=== PATIENT | male | born 1960 | race Caucasian/White ===

== ENCOUNTER → 2018-07-30 | Outpatient (CLI) | payer MEDICARE ==
[~2018-07-30] MED LIST: AMLODIPINE BESY10 MG PO; ASPIR 8181 MG PO; ATENOLOL50 MG PO; FAMOTIDINE20 MG PO; HYDROCODON-ACE1 EA11 PO; HYDROXYZINE HCL50 MG PO; LISINOPRIL20 MG PO; PRAVACHOL40 MG PO; SERTRALINE HCL50 MG PO
--- NOTE | 2018-07-30 09:54 | Diagnostic Imaging Report ---
PROCEDURE:X-RAY ABDOMEN - KUB COMPARISON:None. INDICATIONS:URETERAL CALCULUS FINDINGS: Left internal ureteral stent, positioned with the proximal locking loop over the expected region of the renal pelvis and the distal locking loop over the expected region of the urinary bladder to the left of midline. No suspicious calcifications project over the renal shadows or ureteral courses. Bowel gas pattern is nonobstructive. Regional skeletal structures are intact. CONCLUSION: Appropriately positioned left internal ureteral stent without plain film evidence of urolithiasis. Dictated by: Ry Sanders M.D. on 07/30/2018 at 10:02 Electronically approved by: Ry Sanders M.D. on 07/30/2018 at 10:02
== END ==
LOC: RAD 09:14
PROVIDERS: ATTEND Urology
DX: N20.1 Calculus of ureter (principal)
CPT/HCPCS: 74018

== ENCOUNTER 2020-06-16 16:39 | Emergency (ER) | payer MEDICARE ==
[~2020-06-16] VITALS: Ht 177.8 cm; Wt 117.9 kg
--- NOTE | 2020-06-16 17:08 | NUR ---
seen in triage by
[2020-06-16] MEDS ORDERED: ONDANSETRON HCL INJ 2MG/ML 2ML 2 MG/ML VIAL IV STA (17:11)
[2020-06-16] MEDS ORDERED: FENTANYL CITRATE/PF 100MCG/2 ML INJ IV ONE (17:15)
--- NOTE | 2020-06-16 17:19 | Emergency Department Note ---
History of Present Illnes History of Present Illness Chief Complaint: Abdominal Complaints History of Present Illness This is a 60 year old male Chief Complaint Comment abd pain x 2 days. went to [facility] last night. pt [id number]. ambulatory. states filled rx. vomit x one today. abd upper pain epigastric and across left/right. pt states dr juarez thinks its his gallbladder. Historian: Patient Arrival Mode: Car Television Journalist Required: No Onset (how long ago): day(s) (3) Location: Epigastric Quality: Sharp Radiation: Reports non-radiation Severity: moderate Onset quality: gradual Duration (how long): day(s) (3) Timing of current episode: constant Progression: worsening Chronicity: new Context: Denies recent illness Relieving factors: none Exacerbating factors: none Associated symptoms: Reports denies other symptoms Treatments prior to arrival: none (ANI LOUIS MD) Past Medical/Family History Physician Review I have reviewed the patient's past medical and family history. Any updates have been documented here. (ANI LOUIS MD) Past Medical History Recent Fever: No Clinical Suspicion of Infectio: No New/Unexplained Change in Ment: No Past Medical History: Hypertension, Diabetes, CHF, [place], A-Fib, CAD, Kidney Stones, UTI's, Migraines, Anxiety, GERD, Hyperlipedemia, Chronic Back Pain Other Medical History: Cardiac Stents x 2; [place] x2; kidney stones; gastroenteritis. Past Surgical History: PCI, Pacer/AICD, Hernia Repair Other Surgery: 22 polyups out (ANI LOUIS MD) Social History Physically hurt or threatened: No (ANI LOUIS MD) Review of Systems Review of Systems Constitutional: Reports no symptoms EENTM: Reports no symptoms Cardiovascular: Reports no symptoms Respiratory: Reports no symptoms Gastrointestinal: Reports no symptoms, Reports as per HPI, Reports abdominal pain Genitourinary: Reports no symptoms Musculoskeletal: Reports no symptoms Integumentary: Reports no symptoms Neurological: Reports no symptoms Psychological: Reports no symptoms Endocrine: Reports no symptoms Hematological/Lymphatic: Reports no symptoms (ANI LOUIS MD) Physical Exam Related Data Allergies: Coded Allergies: No Known Allergies (Unverified , 06/05/13) Triage Vital Signs Vital Signs Date Time Temp Pulse Resp B/P (MAP) Pulse Ox O2 Delivery O2 Flow Rate FiO2 06/16/20 17:01 98.8 79 16 138/78 96 Room Air Vital signs reviewed: Yes (ANI LOUIS MD) Physical Exam CONSTITUTIONAL Constitutional: Present well-developed, Present well-nourished HENT HENT: Present normocephalic, Present atraumatic, Present oropharynx clear/moist, Present nose normal HENT L/R: Present left ext ear normal, Present right ext ear normal EYES Eyes: Reports PERRL, Reports conjunctivae normal NECK Neck: Present ROM normal PULMONARY Pulmonary: Present effort normal, Present breath sounds normal CARDIOVASCULAR Cardiovascular: Present regular rhythm, Present heart sounds normal, Present capillary refill normal, Present normal rate GASTROINTESTINAL Abdominal: Present soft, Present bowel sounds normal, Present tender (Epigastric) GENITOURINARY Genitourinary: Present exam deferred SKIN Skin: Present warm, Present dry MUSCULOSKELETAL Musculoskeletal: Present ROM normal NEUROLOGICAL Neurological: Present alert, Present oriented x 3, Present no gross motor or sensory deficits PSYCHOLOGICAL Psychological: Present mood/affect normal, Present judgement normal (ANI LOUIS MD) Results Imaging Imaging results reviewed: Yes Impressions EXAM: Right Upper Quadrant Ultrasound INDICATION: ^abd pain ruq ^[id number] ^[id number] COMPARISON: None. TECHNIQUE: Transverse and longitudinal images of the right upper abdomen were obtained. FINDINGS: Liver: Size: 17.3 cm in the right midclavicular line, enlarged Appearance: Increased echogenicity, smooth contour Mass: No focal masses Gallbladder: Stones/Sludge: None Wall: 0.3 cm Appearance: No wall thickening, pericholecystic fluid or hydrops. Sonographic Richardson's Sign: Negative Bile Ducts: Intrahepatic Ducts: No dilatation Extrahepatic Ducts: Common bile duct measures 0.4 cm, no dilatation Pancreas: Visualized portions of the pancreatic neck and proximal body are normal. Kidneys: Length: Right 13.0 cm Echogenicity: Normal Collecting System: No hydronephrosis Stone: None Cyst/Mass: None Vessels: Aorta: Obscured by overlying bowel gas. Inferior Vena Cava: Obscured by overlying bowel gas. Main Portal Vein: 1.5 cm, upper limit of normal in size with hepatopetal flow. Free Fluid: No ascites or pleural effusion IMPRESSION: 1. No cholelithiasis or cholecystitis. 2. Hepatomegaly with diffuse fatty infiltration. No focal lesions. Signed by: Dr. Karina King M.D. on 06/16/2020 6:18 PM Dictated By: KARINA KING MD 17 Transcribed By: ENRRIQUE on 06/16/201817 COPY TO: ANI LOUIS MD~ (VOLODYMYR THOMAS MD) Procedures 12 Lead ECG Interpretation ECG Interpretation : Television Journalist: Interpreted by ED physician Date: Jun 16, 2020 Rhythm: sinus rhythm Rate: normal BPM: 80 QRS axis: left ST segments normal: Yes T waves normal: Yes Clinical Impression: non-specific ECG (ANI LOUIS MD) Assessment & Plan Medical Decision Making MDM Handed Patient off to Dr. Thomas at 1800 (ANI LOUIS MD) Assessment & Plan Final Impression: (1) Abdominal pain (ANI LOUIS MD) Final Impression: (1) Abdominal pain (2) Gastritis (VOLODYMYR THOMAS MD) Depart Disposition: HOME, SELF-CARE Last Vital Signs Date Time Temp Pulse Resp B/P (MAP) Pulse Ox O2 Delivery O2 Flow Rate FiO2 06/16/20 17:01 98.8 79 16 138/78 96 Room Air (ANI LOUIS MD) Home Meds Reported Medications Amlodipine Besylate (AMLODIPINE BESYLATE) 10 Mg Tablet, 10 MG PO DAILY 06/08/13 Famotidine (FAMOTIDINE) 20 Mg Tab, 20 MG PO BID 06/08/13 Hydrocodone Bit/Acetaminophen (HYDROCODON-ACETAMINOPHEN 5-325) 1 Each Tablet, 1 TAB PO Q6 PRN 06/08/13 Pravastatin Sodium (PRAVACHOL) 40 Mg Tablet, 40 MG PO DAILY 06/08/13 Lisinopril (PRINAVIL / ZESTRIL) 20 Mg Tablet, 20 MG PO DAILY 06/08/13 Atenolol (ATENOLOL) 50 Mg Tablet, 50 MG PO DAILY 06/08/13 Hydroxyzine Hcl (HYDROXYZINE HCL) 50 Mg Tablet, 50 MG PO HS PRN FOR INSOMNIA 06/06/13 Aspirin (ASPIR 81) 81 Mg Tablet.dr, 81 MG PO DAILY 06/05/13 Sertraline Hcl (SERTRALINE HCL) 50 Mg Tablet, 50 MG PO DAILY 06/05/13 Hydroxyzine Hcl (HYDROXYZINE HCL) 50 Mg Tablet, 25 MG PO BID PRN FOR ANXIETY 06/05/13 ANI LOUIS MD Jun 16, 2020 17:19 VOLODYMYR THOMAS MD Jun 16, 2020 18:53
[2020-06-16 17:31] LABS: BASOPHILS % 0.4 % (0.0-1.0); EOSINOPHILS # (AUTO) 0.1 (0.0-0.4); EOSINOPHILS % 1.1 % (0.0-6.0); HEMATOCRIT 46.2 % (38.2-49.6); HEMOGLOBIN 14.9 g/dL (14.0-18.0); LYMPHOCYTES # (AUTO) 1.7 (1.0-3.2); LYMPHOCYTES % 17.6 % (18.0-39.1); MEAN CORPUSCULAR HEMOGLOBIN 30.8 pg (28-32); MEAN CORPUSCULAR HGB CONC 32.3 g/dL (31-35); MEAN CORPUSCULAR VOLUME 95.7 fL (81-99); MONOCYTES # (AUTO) 0.7 (0.2-0.8); MONOCYTES % 7.6 % (4.4-11.3); NEUTROPHILS % 72.6 % (38.7-80.0); PLATELET COUNT 254 x10e3/uL (140-360); RED BLOOD COUNT 4.83 x10e6/uL (4.3-5.7); RED CELL DISTRIBUTION WIDTH 13.3 % (11.7-14.4)
[2020-06-16 17:48] LABS: BILIRUBIN,URINE NEGATIVE (NEGATIVE); CLARITY,URINE CLEAR (CLEAR); COLOR,URINE YELLOW (YELLOW); KETONES,URINE 1+ (NEGATIVE); LEUKOCYTE ESTERASE ,URINE NEGATIVE (NEGATIVE); NITRITE,URINE NEGATIVE (NEGATIVE); PROTEIN,URINE DIPSTICK 1+ (NEGATIVE); URINE UROBILINOGEN 0.2 mg/dL (0.2 - 1)
[2020-06-16 17:56] LABS: ALANINE AMINOTRANSFERASE 26 IU/L (0-55); ALBUMIN 4.1 g/dL (3.5-5.0); ALBUMIN/GLOBULIN RATIO 1.3 (0.8-2.0); ALKALINE PHOSPHATASE 115 IU/L (40-150); BLOOD UREA NITROGEN 13 mg/dL (7-26); BUN/CREATININE RATIO 15 (6-25); CALCIUM 9.3 mg/dL (8.4-10.2); CARBON DIOXIDE 26 mmol/L (22-29); CHLORIDE 101 mmol/L (98-107); CREATININE, SERUM 0.84 mg/dL (0.72-1.25); EST GLOMERULAR FILTRATION RATE > 60 ML/MIN (60-); GLUCOSE 193 mg/dL (74-118); SODIUM 139 mmol/L (136-145)
[2020-06-16 18:02] LABS: BACTERIA,URINE FEW /HPF; EPITHELIAL CELLS,URINE FEW /LPF; RBC,URINE 0-5 /HPF (0-5); WBC,URINE (MAN) 0-5 /HPF (0-5)
[2020-06-16 18:03] LABS: MUCUS,URINE MODERATE (RARE)
--- NOTE | 2020-06-16 18:21 | Diagnostic Imaging Report ---
EXAM: Right Upper Quadrant Ultrasound INDICATION: ^abd pain ruq ^[id number] ^[id number] COMPARISON: None. TECHNIQUE: Transverse and longitudinal images of the right upper abdomen were obtained. FINDINGS: Liver: Size: 17.3 cm in the right midclavicular line, enlarged Appearance: Increased echogenicity, smooth contour Mass: No focal masses Gallbladder: Stones/Sludge: None Wall: 0.3 cm Appearance: No wall thickening, pericholecystic fluid or hydrops. Sonographic Richardson's Sign: Negative Bile Ducts: Intrahepatic Ducts: No dilatation Extrahepatic Ducts: Common bile duct measures 0.4 cm, no dilatation Pancreas: Visualized portions of the pancreatic neck and proximal body are normal. Kidneys: Length: Right 13.0 cm Echogenicity: Normal Collecting System: No hydronephrosis Stone: None Cyst/Mass: None Vessels: Aorta: Obscured by overlying bowel gas. Inferior Vena Cava: Obscured by overlying bowel gas. Main Portal Vein: 1.5 cm, upper limit of normal in size with hepatopetal flow. Free Fluid: No ascites or pleural effusion IMPRESSION: 1. No cholelithiasis or cholecystitis. 2. Hepatomegaly with diffuse fatty infiltration. No focal lesions. Signed by: Dr. Jarred King M.D. on 06/16/2020 6:18 PM
--- NOTE | 2020-06-16 19:14 | NUR ---
report received from mode mccain
--- NOTE | 2020-06-16 19:39 | Diagnostic Imaging Report ---
Exam: Abdominal film Clinical History: Epigastric abdominal pain Comparison: Gallbladder ultrasound performed same day DISCUSSION: Frontal view of the abdomen shows a nonobstructive bowel gas pattern with mild amount of retained stool.There are no dilated, air-filled loops of bowel. There are no abnormal calcifications.No acute bone abnormality. Rightward curvature of the lumbar spine, which may be positional. No aggressive lytic or suspicious focal sclerotic lesions. Distal portion of cardiac wire projects in the region of the right ventricle. Visualized lung bases are grossly clear. IMPRESSION: 1. Nonobstructive bowel gas pattern. The staff physician below has personally reviewed this exam on the date of dictation. Signed by: Dr. Jarred King M.D. on 06/16/2020 7:36 PM
[2020-06-16 20:07] VITALS: BP 130/86
--- OUTSIDE RECORDS SUMMARY | 2020-06-16 20:07 | XMS REPORT | Continuity of Care Document ---
Author Author [facility] t Organization [facility] Address [address] [place] [address] Phone Unavailable Care Team Providers Care Corporate Claims Examiner Name Role Phone Ericka Claudio Attphys Unavailable SUSANPELIRENE Attphys Unavailable Payers Payer Name Policy Type Policy Number Effective Date Expiration Date S ource Problems This patient has no known problems. Allergies, Adverse Reactions, Alerts Allergy Name Allergy Type Status Severity Reaction(s) Onset Date Inacti ve Date Treating Clinician Comments Source tramadol DA Active SV 2020-06-15 00:00:00 [facility] cyclobenzaprine DA Active U 2020-06-15 00:00:00 [facility] tramadol DA Active SV 2019-12-15 00:00:00 [facility] cyclobenzaprine DA Active U 2019-12-15 00:00:00 [facility] tramadol DA Active SV 2019-06-17 00:00:00 [facility] cyclobenzaprine DA Active U 2019-06-17 00:00:00 [facility] tramadol DA Active SV 2019-06-16 00:00:00 [facility] cyclobenzaprine DA Active U 2019-06-16 00:00:00 [facility] tramadol DA Active SV 2019-04-15 00:00:00 [facility] cyclobenzaprine DA Active U 2019-04-15 00:00:00 [facility] tramadol DA Active SV 2018-12-23 00:00:00 [facility] cyclobenzaprine DA Active U 2018-12-23 00:00:00 [facility] cyclobenzaprine DA Active U 2018-08-14 00:00:00 [facility] tramadol DA Active SV 2018-07-02 00:00:00 [facility] tramadol DA Active SV 2017-09-12 00:00:00 [facility] Medications This patient has no known medications. Procedures This patient has no known procedures. Results Test Description Test Time Test Comments Results Result Comments Source ABDOMEN 2 VIEW 2020-06-16 19:35:00 [place] [address] Patient Name: CRISPIN TOMLIN MR #: [id number] : 1960 Age/Sex: 60/M Req #: [id number] Adm Physician: Ordered by: VOLODYMYR THOMAS MD Report #: [id number] Location: ER Room/Bed: Procedure: [id number] DX/ABDOMEN 2 VIEW Exam Date: 06/16/20 Exam Time: 1920 REPORT STATUS: Signed Exam: Abdominal film Clinical History: Epigastric abdominal pain Comparison: Gallbladder ultrasound performed same day DISCUSSION: Frontal view of the abdomen shows a nonobstructive bowel gas pattern with mild amount of retained stool.There are no dilated, air-filled loops of bowel. There are no abnormal calcifications.No acute bone abnormality. Rightward curvature of the lumbar spine, which may be positional. No aggressive lytic or suspicious focal sclerotic lesions. Distal portion of cardiac wire projects in the region of the right ventricle. Visualized lung bases are grossly clear. IMPRESSION: 1. Nonobstructive bowel gas pattern. The staff physician below has personally reviewed this exam on the date of dictation. Signed by: Dr. Jarrde Woods M.D. on 06/16/2020 7:36 PM Dictated By: JARRED WOODS MD 35 Transcribed By: ENRRIQUE on 06/16/201935 COPY TO: VOLODYMYR THOMAS MD US GALLBLADDER 2020-06-16 18:16:00 [place] [address] Patient Name: CRISPIN TOMLIN MR #: [id number] : 1960 Age/Sex: 60/M Req #: [id number] Adm Physician: Ordered by: Ani Claudio MD Report #: [id number] Location: ER Room/Bed: Procedure: [id number] US/US GALLBLADDER Exam Date: 06/16/20 Exam Time: 1724 REPORT STATUS: Signed EXAM: Right Upper Quadrant Ultrasound INDICATION: abd pain ruq [id number] COMPARISON: None. TECHNIQUE: Transverse and longitudinal images of the right upper abdomen were obtained. FINDINGS: Liver: Size: 17.3 cm in the right midc lavicular line, enlarged Appearance: Increased echogenicity, smooth contour Mass: No focal masses Gallbladder: Stones/Sludge: None Wall: 0.3 cm Appearance: No wall thickening, pericholecystic fluid or hydrops. Sonographic Richardson's Sign: Negative Bile Ducts: Intrahepatic Ducts: No dilatation Extrahepatic Ducts: Common bile duct measures 0.4 cm, no dilatation Pancreas: Visualized portions of the pancreatic neck and proximal body are normal. Kidneys: Length: Right 13.0 cm Echogenicity: Normal Collecting System: No hydronephrosis Stone: None Cyst/Mass: None Vessels: Aorta: Obscured by overlying bowel gas. Inferior Vena Cava: Obscured by overlying bowel gas. Main Portal Vein: 1.5 cm, upper limit of normal in size with hepatopetal flow. Free Fluid: No ascites or pleural effusion IMPRESSION: 1. No cholelithiasis or cholecystitis. 2. Hepatomegaly with diffuse fatty infiltration. No focal lesions. Signed by: Dr. Jarred Woods M.D. on 06/16/2020 6:18 PM Dictated By: JARRED WOODS MD 17 Transcribed By: ENRRIQUE on 06/16/201817 COPY TO: ANI CLAUDIO MD BASIC METABOLIC PANEL 2020-06-15 21:36:00 Test Item SODIUM (test code = NA) 139 mmol/L 136-145 N POTASSIUM (test code = K) 3.7 mmol/L 3.5-5.1 N CHLORIDE (test code = CL) 105.0 mmol/L 98-107 N CARBON DIOXIDE (test code = CO2) 26.0 mmol/L 21-32 N ANION GAP (test code = GAP) 11.7 10-20 N GLUCOSE (test code = GLU) 145 mg/dL 74-106 H BLOOD UREA NITROGEN (test code = BUN) 17 mg/dL 7-18 N GLOMERULAR FILTRATION RATE (test code = GFR) > 60 mL/min >=60 Estimated GFR by using Modified MDRD formula.Chronic kidney disease is defined as either kidney damageor GFR <60 mL/min/1.73 m2 for >3 months. CREATININE (test code = CREAT) 0.70 mg/dL 0.7-1.3 N BUN/CREATININE RATIO (test code = BUN/CREA) 23.7 10-20 H CALCIUM (test code = CA) 9.2 mg/dL 8.5-10.1 N HEPATIC FUNCTION [id number] 21:36:00* Test Item Value Reference Range Interpretation Comments TOTAL PROTEIN (test code = PROT) 7.0 gram/dL 6.4-8.2 N ALBUMIN (test code = ALB) 3.4 g/dL 3.4-5.0 N GLOBULIN (test code = GLOB) 3.6 gram/dL 2.7-4.2 N ALBUMIN/GLOBULIN RATIO (test code = A/G) 0.9 0.75-1.50 N BILIRUBIN TOTAL (test code = BILT) 0.50 mg/dL 0.0-1.0 N BILIRUBIN DIRECT (test code = BILD) 0.16 mg/dL 0.0-0.20 N SGOT/AST (test code = AST) 22 IUnit/L 15-37 N SGPT/ALT (test code = ALT) 34 IUnit/L 12-78 N ALKALINE PHOSPHATASE TOTAL (test code = ALKP) 109 IUnit/L 45-117 N Note change in reference range due to change in reagent. [id number] 21:36:00* Test Item Value Reference Range Interpretation Comments LIPASE (test code = LIP) 96 U/L 73.0-393.0 N [id number] 21:36:00* Test Item Value Reference Range Interpretation Comments TROPONIN-I (test code = TROPI) <0.015 ng/mL 0-0.045 N PROTHROMBIN [id number] 21:29:00* Test Item Value Reference Range Interpretation Comments PROTHROMBIN TIME PATIENT (test code = PTP) 11.6 seconds 9.0-14.0 N INTERNATIONAL NORMAL RATIO (test code = INR) 1.0 0.8-1.2 N The therapeutic range for oral anticoagulant therapy formost indications is an international normalized ratio (INR)of between 2.0 and 3.0. The recommended therapeutic INRrange for various clinical situations is listed below: Clinical Situation INR range Pulmonary e mbolism treatment (2.0-3.0)Venous thrombosis treatmentVenous thrombosis prophylaxis (high risk surgery)Prevention of systemic embolism from: Acute myocardial infarction Valvular heart disease Atrial fibrillation Mechanical prosthetic heart valves (2.5-3.5) IS PATIENT ON ANTICOAGULANTS? NTHROMBOPLASTIN TIME [id number] 21:29:00* Test Item Value Reference Range Interpretation Comments THROMBOPLASTIN TIME PARTIAL (test code = PTT) 29.1 seconds 23.0-37. 0 N IS PATIENT ON ANTICOAGULANTS? NBASIC METABOLIC [id number] 21:27:00* Test Item Value Reference Range Interpretation Comments SODIUM (test code = NA) 139 mmol/L 136-145 N POTASSIUM (test code = K) 3.7 mmol/L 3.5-5.1 N CHLORIDE (test code = CL) 105.0 mmol/L 98-107 N CARBON DIOXIDE (test code = CO2) mmol/L 21-32 ANION GAP (test code = GAP) 10-20 GLUCOSE (test code = GLU) mg/dL 74-106 BLOOD UREA NITROGEN (test code = BUN) mg/dL 7-18 GLOMERULAR FILTRATION RATE (test code = GFR) mL/min >=60 CREATININE (test code = CREAT) mg/dL 0.7-1.3 BUN/CREATININE RATIO (test code = BUN/CREA) 10-20 CALCIUM (test code = CA) mg/dL 8.5-10.1 HEPATIC FUNCTION [id number] 21:27:00* Test Item Value Reference Range Interpretation Comments TOTAL PROTEIN (test code = PROT) gram/dL 6.4-8.2 ALBUMIN (test code = ALB) g/dL 3.4-5.0 GLOBULIN (test code = GLOB) gram/dL 2.7-4.2 ALBUMIN/GLOBULIN RATIO (test code = A/G) 0.75-1.50 BILIRUBIN TOTAL (test code = BILT) mg/dL 0.0-1.0 BILIRUBIN DIRECT (test code = BILD) mg/dL 0.0-0.20 SGOT/AST (test code = AST) IUnit/L 15-37 SGPT/ALT (test code = ALT) IUnit/L 12-78 ALKALINE PHOSPHATASE TOTAL (test code = ALKP) IUnit/L 45-117 [id number] 21:27:00* Test Item Value Reference Range Interpretation Comments LIPASE (test code = LIP) U/L 73.0-393.0 [id number] 21:27:00* Test Item Value Reference Range Interpretation Comments TROPONIN-I (test code = TROPI) ng/mL 0-0.045 CBC W/O [id number] 20:53:00* Test Item Value Reference Range Interpretation Comments WHITE BLOOD CELL (test code = WBC) 11.0 K/mm3 4.5-12.5 N RED BLOOD CELL (test code = RBC) 4.55 mill/mm3 4.0-5.8 N HEMOGLOBIN (test code = HGB) 14.5 gram/dL 13.0-17.5 N HEMATOCRIT (test code = HCT) 45.2 % 42.0-52.0 N MEAN CELL VOLUME (test code = MCV) 99.3 fL 80-98 H MEAN CELL HGB (test code = MCH) 31.9 picogram 27.0-33.0 N MEAN CELL HGB CONCETRATION (test code = MCHC) 32.1 gram/dL 33.0-36. 0 L RED CELL DISTRIBUTION WIDTH (test code = RDW) 13.4 % 11.6-16. 2 N PLATELET COUNT (test code = PLT) 254 K/mm3 150-450 N MEAN PLATELET VOLUME (test code = MPV) 10.6 fL 6.7-11.0 N CBC W/O [id number] 20:51:00* Test Item Value Reference Range Interpretation Comments WHITE BLOOD CELL (test code = WBC) K/mm3 4.5-12.5 RED BLOOD CELL (test code = RBC) mill/mm3 4.0-5.8 HEMOGLOBIN (test code = HGB) 14.5 gram/dL 13.0-17.5 N HEMATOCRIT (test code = HCT) 45.2 % 42.0-52.0 N MEAN CELL VOLUME (test code = MCV) fL 80-98 MEAN CELL HGB (test code = MCH) picogram 27.0-33.0 MEAN CELL HGB CONCETRATION (test code = MCHC) gram/dL 33.0-36. 0 RED CELL DISTRIBUTION WIDTH (test code = RDW) % 11.6-16. 2 PLATELET COUNT (test code = PLT) 254 K/mm3 150-450 N MEAN PLATELET VOLUME (test code = MPV) fL 6.7-11.0 URINALYSIS [id number] 20:00:00* Test Item Value Reference Range Interpretation Comments UA COLOR (test code = COLU) YELLOW YELLOW UA APPEARANCE (test code = APPU) CLEAR CLEAR UA GLUCOSE DIPSTICK (test code = DGLUU) 500 (3+) mg/dL NEGATIVE A UA BILIRUBIN DIPSTICK (test code = BILU) NEGATIVE mg/dL NEGATIVE UA KETONE DIPSTICK (test code = KETU) 10 (1+) mg/dL NEGATIVE A UA SPECIFIC GRAVITY (test code = SGU) 1.035 1.001-1.035 UA BLOOD DIPSTICK (test code = TRAVIS) Negative mg/dL NEGATIVE UA PH DIPSTICK (test code = KIP) 6.0 5.0-8.0 UA PROTEIN DIPSTICK (test code = PROU) 100 (2+) mg/dL NEGATIVE A UA UROBILINIOGEN DIPSTICK (test code = URO) Normal mg/dL NEGATIVE UA NITRITE DIPSTICK (test code = KASEY) NEGATIVE NEGATIVE UA LEUKOCYTE ESTERASE W REFLEX (test code = LEUUR) NEGATIVE Chrissy/uL NEGATIVE UA WBC (test code = WBCU) 0-5 per HPF 0-5 UA RBC (test code = RBCU) 0-2 #/HPF 0-5 UA EPITHELIAL CELLS (test code = EPIU) FEW per HPF FEW UA BACTERIA (test code = BACU) NONE SEEN #/HPF NONE UA MUCUS (test code = MUCU) FEW #/LPF FEW Urine Source? Clean Catch- XR FOOT 3 + V [id number] 19:32:00 FAX: Tamiko Avery [phone] [place]: B St: REG Name: CRISPIN CONNELLY [facility] : [birth year] Age/S: 60/M [address] [facility] Unit #: [id number] Loc: [place] [address] Phys: Tamiko Yee MD Acct: [id number] Dis Date: Status: REG ER PHONE #: [phone] Exam Date: 06/15/20201924 FAX #: [phone] Reason: injury EXAMS: CPT CODE: [id number] XR FOOT 3 + V LT [address] REASON FOR EXAM: injury EXAM ORDER DATE: 06/15/2020 6:22 PM Or dering: Tamiko Yee MD Attending:Tamiko Yee MD Locati on:[facility] PROCEDURE: - XR FOOT 3 + V LT FINDINGS: 3 vi ews of the left foot were obtained. The osseous structures are unremarkabl e in size and shape. The joint spaces are maintained. No evidence of fract ure. The phalanges are intact. The metatarsal and tarsal bones are unr emarkable IMPRESSION: Unremarkable left foot Electro nically Signed by Marilyn Granados on 06/15/2020 at 193 Rep orted and signed by: Satya Granados M.D. CC: Tamiko Yee MD Technologist: RT Ria(R Trnscrd Date/Time/By: 06/15/2020 (1931) : By: [email or web address] Orig Print D/T: S: 06/15/2020 (1934) PAGE 1 Signed Report - XR ANKLE 3 + V LT 2020-06-15 19:32:00 FAX: Tamiko Avery [phone] [place]: B St: REG Name: CRISPIN CONNELLYNT [facility] : [birth year] Age/S: 60/M [address] [facility] Unit #: [id number] Loc: [place] [address] Phys: Tamiko Yee MD Acct: [id number] Dis Date: Status: REG ER PHONE #: [phone] Exam Date: 06/15/2020 192 FAX #: [phone] Reason: injury EXAMS: CPT CODE: [id number] XR ANKLE 3 + V LT [address] REASON FOR EXAM: injury EXAM ORDER DATE: 06/15/2020 6:22 PM Or dering: Tamiko Yee MD Attending:Tamiko Yee MD Locati on:[facility] PROCEDURE: - XR ANKLE 3 + V LT FINDINGS: 3 v iews of the left ankle were obtained. The osseous structures are unremarka ble in size and shape. The joint spaces are maintained. No evidence of fra cture. The syndesmosis is intact. IMPRESSION: Diffuse soft ti ssue swelling. No acute osseous abnormality at 1931 Reported an d signed by: Satya Granados M.D. CC: Tamiko Yee MD Technologist: RT Ria(R Trnscrd Date/Time/By: 06/15/2020 (1931) : By: [email or web address] Orig Print D/T: S: 06/15/2020 (1935) PAGE 1 Signed Report COAGULATION TIME ACTIVATED 2020-02-11 09:39:00* Test Item Value Reference Range Interpretation Comments COAGULATION TIME ACTIVATED (test code = ACT) 391 seconds 62.8-88.0 H [id number] 20:51:00* Test Item Value Reference Range Interpretation Comments GLUBED (test code = GLUBED) 202 mg/dL 74-106 H Performed by certified clasp machine operator at [facility] [id number] 16:06:00* Test Item Value Reference Range Interpretation Comments GLUBED (test code = GLUBED) 221 mg/dL 74-106 H Performed by certified clasp machine operator at [facility] - XR ABDOMEN AP 1 [id number] 15:39:00 FAX: Jose Dorado MD [place]: St: ADM Name: CRISPIN CONNELLY [facility] : [birth year] Age/S: 60/M [address] Unit #: [id number] Loc: [address] [address] Phys: Jose Holt MD Acct: [id number] Dis Date: Status: ADM IN PHONE #: [phone] Exam Date: 02/06/2020 1525 FAX #: [phone] Reason: left kidney stone EXAMS: CPT CODE: [id number] XR ABDOMEN AP 1 V [id number] HISTORY: left kidney stone TECHNIQUE: AP abdomen x-ray COMPARISON: Abdominal radiog raphs July 02, 2018 FINDINGS: Nonobstructive bowel gas pattern. No significant stool burden. No intra-abdominal mass e ffect. No abnormal calcifications are observed. Specifically no l eft-sided kidney stone is visualized. Previously seen ureteral stent has b een removed. There are degenerative changes in the spine. Lead from a cardiac device is seen. IMPRESSION: No radiographic evidence of acute intra-abdominal process. Specifically a left kidney stone is not clearly visualized. Location: [facility] at 1539 Reported and signed by: Jorge Donohue MD CC: Jose Holt MD Technologist: Ingrid Bruno(Wilmer) Trnscrd Date/Time/By: 0 02/06/2020 (7233) : By: [email or web address] Orig Print D/T: S: 02/06/2020 (6262) PAGE 1 Signed Report [id number] 12:16:00* Test Item Value Reference Range Interpretation Comments GLUBED (test code = GLUBED) 190 mg/dL 74-106 H Performed by certified clasp machine operator at [facility] COAGULATION TIME [id number] 11:08:00* Test Item Value Reference Range Interpretation Comments COAGULATION TIME ACTIVATED (test code = ACT) 203 seconds 62.8-88.0 H [id number] 06:35:00* Test Item Value Reference Range Interpretation Comments GLUBED (test code = GLUBED) 260 mg/dL 74-106 H Performed by certified clasp machine operator at [facility] [id number] 23:23:00* Test Item Value Reference Range Interpretation Comments GLUBED (test code = GLUBED) 245 mg/dL 74-106 H Performed by certified clasp machine operator at [facility] [id number] 18:24:00* Test Item Value Reference Range Interpretation Comments GLUBED (test code = GLUBED) 187 mg/dL 74-106 H Performed by certified clasp machine operator at [facility] [id number] 13:16:00* Test Item Value Reference Range Interpretation Comments GLUBED (test code = GLUBED) 186 mg/dL 74-106 H Performed by certified clasp machine operator at [facility] [id number] 08:13:00* Test Item Value Reference Range Interpretation Comments GLUBED (test code = GLUBED) 206 mg/dL 74-106 H Performed by certified clasp machine operator at [facility] [id number] 20:30:00* Test Item Value Reference Range Interpretation Comments GLUBED (test code = GLUBED) 146 mg/dL 74-106 H Performed by certified clasp machine operator at [facility] [id number] 15:24:00* Test Item Value Reference Range Interpretation Comments GLUBED (test code = GLUBED) 171 mg/dL 74-106 H Performed by certified clasp machine operator at [facility] [id number] 11:17:00* Test Item Value Reference Range Interpretation Comments GLUBED (test code = GLUBED) 239 mg/dL 74-106 H Performed by certified clasp machine operator at [facility] [id number] 10:45:00* Test Item Value Reference Range Interpretation Comments GLUBED (test code = GLUBED) 205 mg/dL 74-106 H Performed by certified clasp machine operator at [facility] BASIC METABOLIC [id number] 06:14:00* Test Item Value Reference Range Interpretation Comments SODIUM (test code = NA) 140 mmol/L 136-145 N POTASSIUM (test code = K) 4.4 mmol/L 3.5-5.1 N CHLORIDE (test code = CL) 109.0 mmol/L 98-107 H CARBON DIOXIDE (test code = CO2) 27.0 mmol/L 21-32 N ANION GAP (test code = GAP) 8.4 10-20 L GLUCOSE (test code = GLU) 194 mg/dL 74-106 H BLOOD UREA NITROGEN (test code = BUN) 12 mg/dL 7-18 N GLOMERULAR FILTRATION RATE (test code = GFR) > 60 mL/min >=60 Estimated GFR by using Modified MDRD formula.Chronic kidney disease is defined as either kidney damageor GFR <60 mL/min/1.73 m2 for >3 months. CREATININE (test code = CREAT) 0.80 mg/dL 0.7-1.3 N BUN/CREATININE RATIO (test code = BUN/CREA) 15.0 10-20 N CALCIUM (test code = CA) 8.6 mg/dL 8.5-10.1 N PROTHROMBIN [id number] 06:11:00* Test Item Value Reference Range Interpretation Comments PROTHROMBIN TIME PATIENT (test code = PTP) 10.3 seconds 9.0-14.0 N INTERNATIONAL NORMAL RATIO (test code = INR) 0.9 0.8-1.2 N The therapeutic range for oral anticoagulant therapy formost indications is an international normalized ratio (INR)of between 2.0 and 3.0. The recommended therapeutic INRrange for various clinical situations is listed below: Clinical Situation INR range Pulmonary e mbolism treatment (2.0-3.0)Venous thrombosis treatmentVenous thrombosis prophylaxis (high risk surgery)Prevention of systemic embolism from: Acute myocardial infarction Valvular heart disease Atrial fibrillation Mechanical prosthetic heart valves (2.5-3.5) IS PATIENT ON ANTICOAGULANTS? NIS PATIENT ON ANTICOAGULANTS? YLIST ANTICOAGULANT S ASPIRINTHROMBOPLASTIN TIME [id number] 06:11:00* Test Item Value Reference Range Interpretation Comments THROMBOPLASTIN TIME PARTIAL (test code = PTT) 31.7 seconds 25.0-36. 5 N IS PATIENT ON ANTICOAGULANTS? NIS PATIENT ON ANTICOAGULANTS? YLIST ANTICOAGULANT S ASPIRINCBC W/AUTO [id number] 06:05:00* Test Item Value Reference Range Interpretation Comments WHITE BLOOD CELL (test code = WBC) 10.8 K/mm3 4.5-12.5 N RED BLOOD CELL (test code = RBC) 4.55 mill/mm3 4.0-5.8 N HEMOGLOBIN (test code = HGB) 14.1 gram/dL 13.0-17.5 N HEMATOCRIT (test code = HCT) 43.9 % 42.0-52.0 N MEAN CELL VOLUME (test code = MCV) 96.5 fL 80-98 N MEAN CELL HGB (test code = MCH) 31.0 picogram 27.0-33.0 N MEAN CELL HGB CONCETRATION (test code = MCHC) 32.1 gram/dL 33.0-36. 0 L RED CELL DISTRIBUTION WIDTH (test code = RDW) 12.9 % 11.6-16. 2 N RED CELL DISTRIBUTION WIDTH SD (test code = RDW-SD) 46.0 fL 37 .0-51.0 N PLATELET COUNT (test code = PLT) 211 K/mm3 150-450 N MEAN PLATELET VOLUME (test code = MPV) 10.4 fL 6.7-11.0 N NEUTROPHIL % (test code = NT%) 62.2 % 39.0-69.0 N IMMATURE GRANULOCYTE % (test code = IG%) 0.5 % 0.0-5.0 N LYMPHOCYTE % (test code = LY%) 23.6 % 25.0-55.0 L MONOCYTE % (test code = MO%) 7.8 % 0.0-10.0 N EOSINOPHIL % (test code = EO%) 5.2 % 0.0-5.0 H BASOPHIL % (test code = BA%) 0.7 % 0.0-1.0 N NUCLEATED RBC % (test code = NRBC%) 0.0 % 0-0 N NEUTROPHIL # (test code = NT#) 6.72 K/mm3 1.8-7.7 N IMMATURE GRANULOCYTE # (test code = IG#) 0.05 x10 3/uL 0-0.03 H LYMPHOCYTE # (test code = LY#) 2.55 K/mm3 1.0-5.0 N MONOCYTE # (test code = MO#) 0.84 K/mm3 0-0.8 H EOSINOPHIL # (test code = EO#) 0.56 K/mm3 0.0-0.5 H BASOPHIL # (test code = BA#) 0.08 K/mm3 0.0-0.2 N NUCLEATED RBC # (test code = NRBC#) 0.00 K/mm3 0.0-0.1 N MANUAL DIFF REQUIRED (test code = MDIFF) NO CBC W/AUTO [id number] 06:03:00* Test Item Value Reference Range Interpretation Comments WHITE BLOOD CELL (test code = WBC) K/mm3 4.5-12.5 RED BLOOD CELL (test code = RBC) mill/mm3 4.0-5.8 HEMOGLOBIN (test code = HGB) 14.1 gram/dL 13.0-17.5 N HEMATOCRIT (test code = HCT) 43.9 % 42.0-52.0 N MEAN CELL VOLUME (test code = MCV) fL 80-98 MEAN CELL HGB (test code = MCH) picogram 27.0-33.0 MEAN CELL HGB CONCETRATION (test code = MCHC) gram/dL 33.0-36. 0 RED CELL DISTRIBUTION WIDTH (test code = RDW) % 11.6-16. 2 RED CELL DISTRIBUTION WIDTH SD (test code = RDW-SD) fL 37 .0-51.0 PLATELET COUNT (test code = PLT) K/mm3 150-450 MEAN PLATELET VOLUME (test code = MPV) fL 6.7-11.0 NEUTROPHIL % (test code = NT%) % 39.0-69.0 IMMATURE GRANULOCYTE % (test code = IG%) % 0.0-5.0 LYMPHOCYTE % (test code = LY%) % 25.0-55.0 MONOCYTE % (test code = MO%) % 0.0-10.0 EOSINOPHIL % (test code = EO%) % 0.0-5.0 BASOPHIL % (test code = BA%) % 0.0-1.0 NEUTROPHIL # (test code = NT#) K/mm3 1.8-7.7 LYMPHOCYTE # (test code = LY#) K/mm3 1.0-5.0 MONOCYTE # (test code = MO#) K/mm3 0-0.8 EOSINOPHIL # (test code = EO#) K/mm3 0.0-0.5 BASOPHIL # (test code = BA#) K/mm3 0.0-0.2 [id number] 20:05:00* Test Item Value Reference Range Interpretation Comments GLUBED (test code = GLUBED) 152 mg/dL 74-106 H Performed by certified clasp machine operator at [facility] [id number] 18:36:00* Test Item Value Reference Range Interpretation Comments GLUBED (test code = GLUBED) 140 mg/dL 74-106 H Performed by certified clasp machine operator at [facility] [id number] 16:52:00* Test Item Value Reference Range Interpretation Comments GLUBED (test code = GLUBED) 216 mg/dL 74-106 H Performed by certified clasp machine operator at [facility] [id number] 13:46:00* Test Item Value Reference Range Interpretation Comments GLUBED (test code = GLUBED) 131 mg/dL 74-106 H Performed by certified clasp machine operator at [facility] BASIC METABOLIC [id number] 05:31:00* Test Item Value Reference Range Interpretation Comments SODIUM (test code = NA) 142 mmol/L 136-145 N POTASSIUM (test code = K) 4.1 mmol/L 3.5-5.1 N CHLORIDE (test code = CL) 112.0 mmol/L 98-107 H CARBON DIOXIDE (test code = CO2) 24.0 mmol/L 21-32 N ANION GAP (test code = GAP) 10.1 10-20 N GLUCOSE (test code = GLU) 182 mg/dL 74-106 H BLOOD UREA NITROGEN (test code = BUN) 16 mg/dL 7-18 N GLOMERULAR FILTRATION RATE (test code = GFR) > 60 mL/min >=60 Estimated GFR by using Modified MDRD formula.Chronic kidney disease is defined as either kidney damageor GFR <60 mL/min/1.73 m2 for >3 months. CREATININE (test code = CREAT) 0.80 mg/dL 0.7-1.3 N BUN/CREATININE RATIO (test code = BUN/CREA) 20.0 10-20 N CALCIUM (test code = CA) 8.6 mg/dL 8.5-10.1 N LIPID PROFILE (CORONARY RISK)2020-02-03 05:31:00* Test Item Value Reference Range Interpretation Comments TRIGLYCERIDES (test code = TRIG) 230 mg/dL 20-150 H CHOLESTEROL (test code = CHOL) 120 mg/dL 0-200 N CHOLESTEROL/HDL RATIO (test code = CHOLHDL) 3.0 RATIO 0-4.9 N RISK ASSOCIATED WITH CHOL/HDL RATIOS: Risk Male Female1/2 AVERAGE 3.43 3.27AVERAGE 4.97 4.442X AVERAGE 9.55 7.053X AVERAGE 23.39 11.04 REFERENCE VALUE IS RELATED TO RISK LEVELS ASRECOMMENDED BY THE ALEXSANDRA. HEART, LUNG, AND BLOOD INST. HDL CHOLESTEROL (test code = HDL) 32 mg/dL 40-60 L LIPOPROTEIN LDL (test code = LDL) 63 mg/dL 100-129 L Reference Interval: mg/dL mmol/L Optimal <100 <2.6Near/above optimal 100-129 2.6- 3.3Borderline High 130-159 3.4-4.1High 160-189 4.1-4.9Very High >=190 >=4.9========= This LDL result is a direct measurement.========= [id number] 05:31:00* Test Item Value Reference Range Interpretation Comments TROPONIN-I (test code = TROPI) 0.085 ng/mL 0-0.045 HH Results called to [id number] by LESLIE 02/03/20 0531Critical results verified and read back by Nurse? Y PROTHROMBIN [id number] 05:18:00* Test Item Value Reference Range Interpretation Comments PROTHROMBIN TIME PATIENT (test code = PTP) 10.6 seconds 9.0-14.0 N INTERNATIONAL NORMAL RATIO (test code = INR) 0.9 0.8-1.2 N The therapeutic range for oral anticoagulant therapy formost indications is an international normalized ratio (INR)of between 2.0 and 3.0. The recommended therapeutic INRrange for various clinical situations is listed below: Clinical Situation INR range Pulmonary e mbolism treatment (2.0-3.0)Venous thrombosis treatmentVenous thrombosis prophylaxis (high risk surgery)Prevention of systemic embolism from: Acute myocardial infarction Valvular heart disease Atrial fibrillation Mechanical prosthetic heart valves (2.5-3.5) IS PATIENT ON ANTICOAGULANTS? NTHROMBOPLASTIN TIME [id number] 05:18:00* Test Item Value Reference Range Interpretation Comments THROMBOPLASTIN TIME PARTIAL (test code = PTT) 32.7 seconds 25.0-36. 5 N IS PATIENT ON ANTICOAGULANTS? NBASIC METABOLIC [id number] 05:15:00* Test Item Value Reference Range Interpretation Comments SODIUM (test code = NA) 142 mmol/L 136-145 N POTASSIUM (test code = K) 4.1 mmol/L 3.5-5.1 N CHLORIDE (test code = CL) 112.0 mmol/L 98-107 H CARBON DIOXIDE (test code = CO2) mmol/L 21-32 ANION GAP (test code = GAP) 10-20 GLUCOSE (test code = GLU) mg/dL 74-106 BLOOD UREA NITROGEN (test code = BUN) mg/dL 7-18 GLOMERULAR FILTRATION RATE (test code = GFR) mL/min >=60 CREATININE (test code = CREAT) mg/dL 0.7-1.3 BUN/CREATININE RATIO (test code = BUN/CREA) 10-20 CALCIUM (test code = CA) mg/dL 8.5-10.1 LIPID PROFILE (CORONARY RISK)2020-02-03 05:15:00* Test Item Value Reference Range Interpretation Comments TRIGLYCERIDES (test code = TRIG) mg/dL 20-150 CHOLESTEROL (test code = CHOL) mg/dL 0-200 CHOLESTEROL/HDL RATIO (test code = CHOLHDL) RATIO 0-4.9 HDL CHOLESTEROL (test code = HDL) mg/dL 40-60 LIPOPROTEIN LDL (test code = LDL) mg/dL 100-129 [id number] 05:15:00* Test Item Value Reference Range Interpretation Comments TROPONIN-I (test code = TROPI) ng/mL 0-0.045 CBC W/AUTO [id number] 05:04:00* Test Item Value Reference Range Interpretation Comments WHITE BLOOD CELL (test code = WBC) 13.1 K/mm3 4.5-12.5 H RED BLOOD CELL (test code = RBC) 4.76 mill/mm3 4.0-5.8 N HEMOGLOBIN (test code = HGB) 14.9 gram/dL 13.0-17.5 N HEMATOCRIT (test code = HCT) 46.0 % 42.0-52.0 N MEAN CELL VOLUME (test code = MCV) 96.6 fL 80-98 N MEAN CELL HGB (test code = MCH) 31.3 picogram 27.0-33.0 N MEAN CELL HGB CONCETRATION (test code = MCHC) 32.4 gram/dL 33.0-36. 0 L RED CELL DISTRIBUTION WIDTH (test code = RDW) 13.0 % 11.6-16. 2 N RED CELL DISTRIBUTION WIDTH SD (test code = RDW-SD) 46.4 fL 37 .0-51.0 N PLATELET COUNT (test code = PLT) 215 K/mm3 150-450 N MEAN PLATELET VOLUME (test code = MPV) 10.6 fL 6.7-11.0 N NEUTROPHIL % (test code = NT%) 64.6 % 39.0-69.0 N IMMATURE GRANULOCYTE % (test code = IG%) 0.5 % 0.0-5.0 N LYMPHOCYTE % (test code = LY%) 22.3 % 25.0-55.0 L MONOCYTE % (test code = MO%) 8.3 % 0.0-10.0 N EOSINOPHIL % (test code = EO%) 3.8 % 0.0-5.0 N BASOPHIL % (test code = BA%) 0.5 % 0.0-1.0 N NUCLEATED RBC % (test code = NRBC%) 0.0 % 0-0 N NEUTROPHIL # (test code = NT#) 8.43 K/mm3 1.8-7.7 H IMMATURE GRANULOCYTE # (test code = IG#) 0.07 x10 3/uL 0-0.03 H LYMPHOCYTE # (test code = LY#) 2.91 K/mm3 1.0-5.0 N MONOCYTE # (test code = MO#) 1.09 K/mm3 0-0.8 H EOSINOPHIL # (test code = EO#) 0.50 K/mm3 0.0-0.5 N BASOPHIL # (test code = BA#) 0.06 K/mm3 0.0-0.2 N NUCLEATED RBC # (test code = NRBC#) 0.00 K/mm3 0.0-0.1 N MANUAL DIFF REQUIRED (test code = MDIFF) NO [id number] 20:04:00* Test Item Value Reference Range Interpretation Comments GLUBED (test code = GLUBED) 157 mg/dL 74-106 H Performed by certified clasp machine operator at [facility] [id number] 16:23:00* Test Item Value Reference Range Interpretation Comments GLUBED (test code = GLUBED) 149 mg/dL 74-106 H Performed by certified clasp machine operator at [facility] [id number] 14:03:00* Test Item Value Reference Range Interpretation Comments TROPONIN-I (test code = TROPI) 0.083 ng/mL 0-0.045 HH COMMENTS TO [place]: COLLECT 3 HOURS AFTER PREVIOUS [id number] 11:31:00* Test Item Value Reference Range Interpretation Comments GLUBED (test code = GLUBED) 202 mg/dL 74-106 H Performed by certified clasp machine operator at [facility] [id number] 10:36:00* Test Item Value Reference Range Interpretation Comments TROPONIN-I (test code = TROPI) 0.135 ng/mL 0-0.045 HH COMMENTS TO [place]: COLLECT 3 HOURS AFTER PREVIOUS [id number] 08:02:00* Test Item Value Reference Range Interpretation Comments GLUBED (test code = GLUBED) 214 mg/dL 74-106 H Performed by certified clasp machine operator at [facility] - CT ABD PELVIS W/O [id number] 04:26:00 [facility] 1960 Age/S: 60 / M [address] Unit #: [id number] Loc: [place] [address] Phys: Tae Levy MD Acct: [id number] Dis Date: Status: REG ER PHONE #: [phone] Exam Date: 02/02/2020417 FAX #: [phone] Reason: L flank pain EXAMS: CPT CODE: [id number] CT ABD PELVIS W/O CONT 41303 EXAM: - CT ABD PELVIS W/O CONT HISTORY: Left flank pain. TECHNIQUE: Axial tomograms through the abdomen and pelvis were obtained without intravenous or enteric contrast. Coronal and sagittal reformatted images are provided. This exam was performed according to our departmental dose-optimization program, which includes automated exposure control, adjustment of the mA and/or kV according to patient size and/or use of iterative reconstruction technique. COMPARISON: December 15, 2019. FINDINGS: The visualized lung bases are clear. Mild to moderate left hydronephrosis. No evidence of renal calculi. There is a 4 mm calculus in proximal left ureter at L4 level. The unenhanced visualized liver, spleen, pancreas, and left adrenal demonstrate no significant abnorma lities. Stable right adrenal nodule. There is no fluid colle ction or pelvic adenopathy. The unopacified bowel is unremarkable. The appendix appears normal. Atherosclerosis. IMPRESSION: There is a 4 mm calculus in proximal left ur eter causing left hydronephrosis. at 0426 Reported and sign ed by: Kt Beltran MD PAGE 1 Signed Report (CONTINUED) Name: CRISPIN TOMLIN [facility] 1960 Age/S: 60 / M [address] Unit #: [id number] Loc: [place] [address] Phys: Tae Levy MD Acct: [id number] Dis Date: Status: REG ER PHONE #: [phone] Exam Date: 02/02/2020417 FAX #: [phone] Reason: L flank pain EXAMS: CPT CODE: [id number] CT ABD PELVIS W/O CONT 45882 < Continued> CC: Tae Levy MD; Debora Day Technologist:Chad Orellana, RT(R)(CT) CTDI: DLP: Trnscb Date/Time: 02/02/2020 (0426) [id number] Orig Print D/T: S: 02/02/2020 (2905) PAGE 2 Signed Report BASIC METABOLIC [id number] 04:11:00* Test Item Value Reference Range Interpretation Comments SODIUM (test code = NA) 144 mmol/L 136-145 N POTASSIUM (test code = K) 3.8 mmol/L 3.5-5.1 N CHLORIDE (test code = CL) 112.0 mmol/L 98-107 H CARBON DIOXIDE (test code = CO2) 24.0 mmol/L 21-32 N ANION GAP (test code = GAP) 11.8 10-20 N GLUCOSE (test code = GLU) 170 mg/dL 74-106 H BLOOD UREA NITROGEN (test code = BUN) 18 mg/dL 7-18 N GLOMERULAR FILTRATION RATE (test code = GFR) > 60 mL/min >=60 Estimated GFR by using Modified MDRD formula.Chronic kidney disease is defined as either kidney damageor GFR <60 mL/min/1.73 m2 for >3 months. CREATININE (test code = CREAT) 0.90 mg/dL 0.7-1.3 N BUN/CREATININE RATIO (test code = BUN/CREA) 20.0 10-20 N CALCIUM (test code = CA) 9.0 mg/dL 8.5-10.1 N HEPATIC FUNCTION [id number] 04:11:00* Test Item Value Reference Range Interpretation Comments TOTAL PROTEIN (test code = PROT) 6.8 gram/dL 6.4-8.2 N ALBUMIN (test code = ALB) 3.4 g/dL 3.4-5.0 N GLOBULIN (test code = GLOB) 3.4 gram/dL 2.7-4.2 N ALBUMIN/GLOBULIN RATIO (test code = A/G) 1.0 0.75-1.50 N BILIRUBIN TOTAL (test code = BILT) 0.40 mg/dL 0.0-1.0 N BILIRUBIN DIRECT (test code = BILD) 0.10 mg/dL 0.0-0.20 N SGOT/AST (test code = AST) 15 IUnit/L 15-37 N SGPT/ALT (test code = ALT) 40 IUnit/L 12-78 N ALKALINE PHOSPHATASE TOTAL (test code = ALKP) 89 IUnit/L 45-117 N Note change in reference range due to change in reagent. [id number] 04:11:00* Test Item Value Reference Range Interpretation Comments LIPASE (test code = LIP) 569 U/L 73.0-393.0 H [id number] 04:11:00* Test Item Value Reference Range Interpretation Comments TROPONIN-I (test code = TROPI) 0.241 ng/mL 0-0.045 HH Results called to [place] [address] by V.LAB.GP 02/02/20 0411Critical results verified and read back by Nurse? Y URINALYSIS [id number] 04:04:00* Test Item Value Reference Range Interpretation Comments UA COLOR (test code = COLU) YELLOW YELLOW UA APPEARANCE (test code = APPU) CLEAR CLEAR UA GLUCOSE DIPSTICK (test code = DGLUU) NEGATIVE mg/dL NEGATIVE UA BILIRUBIN DIPSTICK (test code = BILU) NEGATIVE mg/dL NEGATIVE UA KETONE DIPSTICK (test code = KETU) TRACE mg/dL NEGATIVE A UA SPECIFIC GRAVITY (test code = SGU) 1.025 1.001-1.035 UA BLOOD DIPSTICK (test code = TRAVIS) 0.2 mg/dL (2+) mg/dL NEGATIVE A UA PH DIPSTICK (test code = KIP) 5.5 5.0-8.0 UA PROTEIN DIPSTICK (test code = PROU) 100 (2+) mg/dL NEGATIVE A UA UROBILINIOGEN DIPSTICK (test code = URO) Normal mg/dL NEGATIVE UA NITRITE DIPSTICK (test code = KASEY) NEGATIVE NEGATIVE UA LEUKOCYTE ESTERASE W REFLEX (test code = LEUUR) NEGATIVE Chrissy/uL NEGATIVE UA WBC (test code = WBCU) 6-10 per HPF 0-5 A UA RBC (test code = RBCU) >200 #/HPF 0-5 UA EPITHELIAL CELLS (test code = EPIU) FEW per HPF FEW UA BACTERIA (test code = BACU) MODERATE #/HPF NONE A UA CALCIUM OXALATE CRYSTALS (test code = CAOXU) FEW per LPF NONE UA HYALINE CAST (test code = HYALU) 0-2 #/LPF 0-5 UA MUCUS (test code = MUCU) FEW #/LPF FEW UA YEAST (test code = YEASTU) FEW per HPF NONE Urine Source? Clean CatchBASIC METABOLIC [id number] 04:03:00* Test Item Value Reference Range Interpretation Comments SODIUM (test code = NA) 144 mmol/L 136-145 N POTASSIUM (test code = K) 3.8 mmol/L 3.5-5.1 N CHLORIDE (test code = CL) 112.0 mmol/L 98-107 H CARBON DIOXIDE (test code = CO2) mmol/L 21-32 ANION GAP (test code = GAP) 10-20 GLUCOSE (test code = GLU) mg/dL 74-106 BLOOD UREA NITROGEN (test code = BUN) mg/dL 7-18 GLOMERULAR FILTRATION RATE (test code = GFR) mL/min >=60 CREATININE (test code = CREAT) mg/dL 0.7-1.3 BUN/CREATININE RATIO (test code = BUN/CREA) 10-20 CALCIUM (test code = CA) mg/dL 8.5-10.1 HEPATIC FUNCTION [id number] 04:03:00* Test Item Value Reference Range Interpretation Comments TOTAL PROTEIN (test code = PROT) gram/dL 6.4-8.2 ALBUMIN (test code = ALB) g/dL 3.4-5.0 GLOBULIN (test code = GLOB) gram/dL 2.7-4.2 ALBUMIN/GLOBULIN RATIO (test code = A/G) 0.75-1.50 BILIRUBIN TOTAL (test code = BILT) mg/dL 0.0-1.0 BILIRUBIN DIRECT (test code = BILD) mg/dL 0.0-0.20 SGOT/AST (test code = AST) IUnit/L 15-37 SGPT/ALT (test code = ALT) IUnit/L 12-78 ALKALINE PHOSPHATASE TOTAL (test code = ALKP) IUnit/L 45-117 [id number] 04:03:00* Test Item Value Reference Range Interpretation Comments LIPASE (test code = LIP) U/L 73.0-393.0 [id number] 04:03:00* Test Item Value Reference Range Interpretation Comments TROPONIN-I (test code = TROPI) ng/mL 0-0.045 CBC W/O [id number] 03:47:00* Test Item Value Reference Range Interpretation Comments WHITE BLOOD CELL (test code = WBC) 14.7 K/mm3 4.5-12.5 H RED BLOOD CELL (test code = RBC) 5.28 mill/mm3 4.0-5.8 N HEMOGLOBIN (test code = HGB) 16.3 gram/dL 13.0-17.5 N HEMATOCRIT (test code = HCT) 50.1 % 42.0-52.0 N MEAN CELL VOLUME (test code = MCV) 94.9 fL 80-98 N MEAN CELL HGB (test code = MCH) 30.9 picogram 27.0-33.0 N MEAN CELL HGB CONCETRATION (test code = MCHC) 32.5 gram/dL 33.0-36. 0 L RED CELL DISTRIBUTION WIDTH (test code = RDW) 12.8 % 11.6-16. 2 N PLATELET COUNT (test code = PLT) 248 K/mm3 150-450 N MEAN PLATELET VOLUME (test code = MPV) 10.4 fL 6.7-11.0 N CBC W/O [id number] 03:41:00* Test Item Value Reference Range Interpretation Comments WHITE BLOOD CELL (test code = WBC) K/mm3 4.5-12.5 RED BLOOD CELL (test code = RBC) mill/mm3 4.0-5.8 HEMOGLOBIN (test code = HGB) 16.3 gram/dL 13.0-17.5 N HEMATOCRIT (test code = HCT) 50.1 % 42.0-52.0 N MEAN CELL VOLUME (test code = MCV) fL 80-98 MEAN CELL HGB (test code = MCH) picogram 27.0-33.0 MEAN CELL HGB CONCETRATION (test code = MCHC) gram/dL 33.0-36. 0 RED CELL DISTRIBUTION WIDTH (test code = RDW) % 11.6-16. 2 PLATELET COUNT (test code = PLT) K/mm3 150-450 MEAN PLATELET VOLUME (test code = MPV) fL 6.7-11.0 - CT ABD PELVIS W/O [id number] 04:39:00 Name: CRISPIN TOMLIN [facility] : 1960 Age/S: 59 / M [address] Unit #: [id number] Loc: [place] [address] Phys: Rashawn Nolasco MD Acct: [id number] Dis Date: Status: REG ER PHONE #: [phone] Exam Date: 12/15/2019 0354 FAX #: [phone] Reason: L CVA AND LLQ PAIN, HX KIDNEY STONES EXAMS: CPT CODE: [id number] CT ABD PELVIS W/O CONT 67614 Exam: Stone protocol CT abdomen and pelvis. Location: H 12 History: L CVA AND LLQ PAIN, HX KIDNEY STONES COMPARISON: 12/23/2018 Technique: Unenhanced spiral slices were taken from the domes of the diaphragm, through the pubic symphysis utilizing a stone protocol. Coronal reformations were performed. One or more of the following dose reduction techniques were used: Automated exposure control, adjustment of the mA and/or kV according to patient size, and/or utilization of iterative reconstruction technique. Findings: There is a 3 mm nonobstructing left renal calculus. The kidneys are otherwise unremarkable. No perinephric fluid collections or hydronephrosis is seen. The liver is of normal, homogeneous density. No mass is seen. The intra-and extrahepatic biliary tree is normal. The gallbladder is unremarkable. No pericholecystic fluid or wall thickening is present. The pancreas is normal. The pa ncreatic duct is normal in caliber. A 1.5 cm right adrenal adenoma is aga in noted. The spleen and left adrenal gland are normal in size and shape. The large and small intestine are normal in caliber. The appendix is normal. No inflammatory change is identified. No lymphad enopathy or free fluid is found in the abdomen or the pelvis. The pe lvic structures are unremarkable. Atherosclerosis, spondylosis and osteoarthritis are noted. The lung bases are clear. No inc idental abdominal findings are noted. Impression: 1. N o acute abdominal findings. 2. Left nephrolithiasis. 3. Stable right adrenal adenoma. 4. Stable exam. PAGE 1 Signed Report (CONTINUED) Name: CRISPIN TOMLIN [facility] : 1960 Age/S: 59 / M [address] Unit #: [id number] Loc: [place] g[place], [place] [address] Phys: Rashawn Nolasco MD Acct: [id number] Dis Date: Status: REG ER PHONE #: [phone] Exam Date: 12/15 FAX #: [phone] Reason: L CVA AND LLQ P AIN, HX KIDNEY STONES EXAMS: CPT CODE: [id number] CT ABD PELVIS W/O CONT 74 176 <Continued> at 0439 Reported and signed by: Dashawn Longo M.D. CC: Rashawn Nolasco MD; Luis Eduardo Campos MD Technologist:Anil Padilla RT(R) CTDI: DLP: Trnscb Date/Time: 12/15/2019 (438) t.[email or web address] Orig Print D/T: S: 12/15/2019 (044) PAGE 2 Signed Report URINALYSIS [id number] 03:49:00* Test Item Value Reference Range Interpretation Comments UA COLOR (test code = COLU) Light-Yellow YELLOW UA APPEARANCE (test code = APPU) CLEAR CLEAR UA GLUCOSE DIPSTICK (test code = DGLUU) NEGATIVE mg/dL NEGATIVE UA BILIRUBIN DIPSTICK (test code = BILU) NEGATIVE mg/dL NEGATIVE UA KETONE DIPSTICK (test code = KETU) TRACE mg/dL NEGATIVE A UA SPECIFIC GRAVITY (test code = SGU) 1.014 1.001-1.035 UA BLOOD DIPSTICK (test code = TRAVIS) Negative mg/dL NEGATIVE UA PH DIPSTICK (test code = KIP) 7.0 5.0-8.0 UA PROTEIN DIPSTICK (test code = PROU) 10 (Trace) mg/dL NEGATIVE A UA UROBILINIOGEN DIPSTICK (test code = URO) Normal mg/dL NEGATIVE UA NITRITE DIPSTICK (test code = KASEY) NEGATIVE NEGATIVE UA LEUKOCYTE ESTERASE W REFLEX (test code = LEUUR) NEGATIVE Chrissy/uL NEGATIVE UA WBC (test code = WBCU) 0-5 per HPF 0-5 UA RBC (test code = RBCU) 0-2 #/HPF 0-5 UA EPITHELIAL CELLS (test code = EPIU) None seen per HPF FEW UA BACTERIA (test code = BACU) NONE SEEN #/HPF NONE UA MUCUS (test code = MUCU) FEW #/LPF FEW Urine Source? Clean CatchBASIC METABOLIC [id number] 02:51:00* Test Item Value Reference Range Interpretation Comments SODIUM (test code = NA) 142 mmol/L 136-145 N POTASSIUM (test code = K) 3.8 mmol/L 3.5-5.1 N CHLORIDE (test code = CL) 112.0 mmol/L 98-107 H CARBON DIOXIDE (test code = CO2) 24.0 mmol/L 21-32 N ANION GAP (test code = GAP) 9.8 10-20 L GLUCOSE (test code = GLU) 99 mg/dL 74-106 N BLOOD UREA NITROGEN (test code = BUN) 5 mg/dL 7-18 L GLOMERULAR FILTRATION RATE (test code = GFR) > 60 mL/min >=60 Estimated GFR by using Modified MDRD formula.Chronic kidney disease is defined as either kidney damageor GFR <60 mL/min/1.73 m2 for >3 months. CREATININE (test code = CREAT) 0.70 mg/dL 0.7-1.3 N BUN/CREATININE RATIO (test code = BUN/CREA) 7.1 10-20 L CALCIUM (test code = CA) 9.1 mg/dL 8.5-10.1 N HEPATIC FUNCTION [id number] 02:51:00* Test Item Value Reference Range Interpretation Comments TOTAL PROTEIN (test code = PROT) 7.2 gram/dL 6.4-8.2 N ALBUMIN (test code = ALB) 3.6 g/dL 3.4-5.0 N GLOBULIN (test code = GLOB) 3.6 gram/dL 2.7-4.2 N ALBUMIN/GLOBULIN RATIO (test code = A/G) 1.0 0.75-1.50 N BILIRUBIN TOTAL (test code = BILT) 0.20 mg/dL 0.0-1.0 N BILIRUBIN DIRECT (test code = BILD) 0.09 mg/dL 0.0-0.20 N SGOT/AST (test code = AST) 18 IUnit/L 15-37 N SGPT/ALT (test code = ALT) 47 IUnit/L 12-78 N ALKALINE PHOSPHATASE TOTAL (test code = ALKP) 138 IUnit/L 45-117 H Note change in reference range due to change in reagent. [id number] 02:51:00* Test Item Value Reference Range Interpretation Comments LIPASE (test code = LIP) 275 U/L 73.0-393.0 N [id number] 02:51:00* Test Item Value Reference Range Interpretation Comments TROPONIN-I (test code = TROPI) <0.015 ng/mL 0-0.045 N BASIC METABOLIC [id number] 02:31:00* Test Item Value Reference Range Interpretation Comments SODIUM (test code = NA) 142 mmol/L 136-145 N POTASSIUM (test code = K) 3.8 mmol/L 3.5-5.1 N CHLORIDE (test code = CL) 112.0 mmol/L 98-107 H CARBON DIOXIDE (test code = CO2) mmol/L 21-32 ANION GAP (test code = GAP) 10-20 GLUCOSE (test code = GLU) mg/dL 74-106 BLOOD UREA NITROGEN (test code = BUN) mg/dL 7-18 GLOMERULAR FILTRATION RATE (test code = GFR) mL/min >=60 CREATININE (test code = CREAT) mg/dL 0.7-1.3 BUN/CREATININE RATIO (test code = BUN/CREA) 10-20 CALCIUM (test code = CA) mg/dL 8.5-10.1 HEPATIC FUNCTION [id number] 02:31:00* Test Item Value Reference Range Interpretation Comments TOTAL PROTEIN (test code = PROT) gram/dL 6.4-8.2 ALBUMIN (test code = ALB) g/dL 3.4-5.0 GLOBULIN (test code = GLOB) gram/dL 2.7-4.2 ALBUMIN/GLOBULIN RATIO (test code = A/G) 0.75-1.50 BILIRUBIN TOTAL (test code = BILT) mg/dL 0.0-1.0 BILIRUBIN DIRECT (test code = BILD) mg/dL 0.0-0.20 SGOT/AST (test code = AST) IUnit/L 15-37 SGPT/ALT (test code = ALT) IUnit/L 12-78 ALKALINE PHOSPHATASE TOTAL (test code = ALKP) IUnit/L 45-117 [id number] 02:31:00* Test Item Value Reference Range Interpretation Comments LIPASE (test code = LIP) U/L 73.0-393.0 [id number] 02:31:00* Test Item Value Reference Range Interpretation Comments TROPONIN-I (test code = TROPI) ng/mL 0-0.045 CBC W/O [id number] 02:13:00* Test Item Value Reference Range Interpretation Comments WHITE BLOOD CELL (test code = WBC) 9.9 K/mm3 4.5-12.5 N RED BLOOD CELL (test code = RBC) 4.87 mill/mm3 4.0-5.8 N HEMOGLOBIN (test code = HGB) 15.0 gram/dL 13.0-17.5 N HEMATOCRIT (test code = HCT) 47.5 % 42.0-52.0 N MEAN CELL VOLUME (test code = MCV) 97.5 fL 80-98 N MEAN CELL HGB (test code = MCH) 30.8 picogram 27.0-33.0 N MEAN CELL HGB CONCETRATION (test code = MCHC) 31.6 gram/dL 33.0-36. 0 L RED CELL DISTRIBUTION WIDTH (test code = RDW) 13.2 % 11.6-16. 2 N PLATELET COUNT (test code = PLT) 299 K/mm3 150-450 N MEAN PLATELET VOLUME (test code = MPV) 9.9 fL 6.7-11.0 N CBC W/O [id number] 02:09:00* Test Item Value Reference Range Interpretation Comments WHITE BLOOD CELL (test code = WBC) K/mm3 4.5-12.5 RED BLOOD CELL (test code = RBC) mill/mm3 4.0-5.8 HEMOGLOBIN (test code = HGB) 15.0 gram/dL 13.0-17.5 N HEMATOCRIT (test code = HCT) 47.5 % 42.0-52.0 N MEAN CELL VOLUME (test code = MCV) fL 80-98 MEAN CELL HGB (test code = MCH) picogram 27.0-33.0 MEAN CELL HGB CONCETRATION (test code = MCHC) gram/dL 33.0-36. 0 RED CELL DISTRIBUTION WIDTH (test code = RDW) % 11.6-16. 2 PLATELET COUNT (test code = PLT) K/mm3 150-450 MEAN PLATELET VOLUME (test code = MPV) fL 6.7-11.0 [id number] 17:18:00* Test Item Value Reference Range Interpretation Comments GLUBED (test code = GLUBED) 147 mg/dL 74-106 H Performed by certified clasp machine operator at [facility] [id number] 12:33:00* Test Item Value Reference Range Interpretation Comments GLUBED (test code = GLUBED) 134 mg/dL 74-106 H Performed by certified clasp machine operator at [facility] [id number] 07:33:00* Test Item Value Reference Range Interpretation Comments GLUBED (test code = GLUBED) 220 mg/dL 74-106 H Performed by certified clasp machine operator at [facility] [id number] 20:11:00* Test Item Value Reference Range Interpretation Comments GLUBED (test code = GLUBED) 182 mg/dL 74-106 H Performed by certified clasp machine operator at [facility] [id number] 15:38:00* Test Item Value Reference Range Interpretation Comments GLUBED (test code = GLUBED) 192 mg/dL 74-106 H Performed by certified clasp machine operator at [facility] [id number] 11:30:00* Test Item Value Reference Range Interpretation Comments GLUBED (test code = GLUBED) 195 mg/dL 74-106 H Performed by certified clasp machine operator at [facility] [id number] 06:40:00* Test Item Value Reference Range Interpretation Comments GLUBED (test code = GLUBED) 147 mg/dL 74-106 H Performed by certified clasp machine operator at [facility] [id number] 02:47:00* Test Item Value Reference Range Interpretation Comments TROPONIN-I (test code = TROPI) <0.015 ng/mL 0-0.045 N COMMENTS TO [place]: COLLECT 3 HOURS AFTER PREVIOUS [id number] 23:27:00* Test Item Value Reference Range Interpretation Comments TROPONIN-I (test code = TROPI) <0.015 ng/mL 0-0.045 N COMMENTS TO [place]: COLLECT 3 HOURS AFTER PREVIOUS [id number] 20:44:00* Test Item Value Reference Range Interpretation Comments GLUBED (test code = GLUBED) 131 mg/dL 74-106 H Performed by certified clasp machine operator at [facility] B-TYPE NATRIURETIC [id number] 14:39:00* Test Item Value Reference Range Interpretation Comments B-TYPE NATRIURETIC PEPTIDE (test code = BNP) 79.87 pgram/mL 0-100 N BASIC METABOLIC [id number] 14:04:00* Test Item Value Reference Range Interpretation Comments SODIUM (test code = NA) 143 mmol/L 136-145 N POTASSIUM (test code = K) 4.1 mmol/L 3.5-5.1 N CHLORIDE (test code = CL) 109.0 mmol/L 98-107 H CARBON DIOXIDE (test code = CO2) 29.0 mmol/L 21-32 N ANION GAP (test code = GAP) 9.1 10-20 L GLUCOSE (test code = GLU) 132 mg/dL 74-106 H BLOOD UREA NITROGEN (test code = BUN) 12 mg/dL 7-18 N GLOMERULAR FILTRATION RATE (test code = GFR) > 60 mL/min >=60 Estimated GFR by using Modified MDRD formula.Chronic kidney disease is defined as either kidney damageor GFR <60 mL/min/1.73 m2 for >3 months. CREATININE (test code = CREAT) 0.80 mg/dL 0.7-1.3 N BUN/CREATININE RATIO (test code = BUN/CREA) 15.9 10-20 N CALCIUM (test code = CA) 9.2 mg/dL 8.5-10.1 N [id number] 14:04:00* Test Item Value Reference Range Interpretation Comments TROPONIN-I (test code = TROPI) <0.015 ng/mL 0-0.045 N BASIC METABOLIC [id number] 13:57:00* Test Item Value Reference Range Interpretation Comments SODIUM (test code = NA) 143 mmol/L 136-145 N POTASSIUM (test code = K) 4.1 mmol/L 3.5-5.1 N CHLORIDE (test code = CL) 109.0 mmol/L 98-107 H CARBON DIOXIDE (test code = CO2) mmol/L 21-32 ANION GAP (test code = GAP) 10-20 GLUCOSE (test code = GLU) mg/dL 74-106 BLOOD UREA NITROGEN (test code = BUN) mg/dL 7-18 GLOMERULAR FILTRATION RATE (test code = GFR) mL/min >=60 CREATININE (test code = CREAT) mg/dL 0.7-1.3 BUN/CREATININE RATIO (test code = BUN/CREA) 10-20 CALCIUM (test code = CA) mg/dL 8.5-10.1 [id number] 13:57:00* Test Item Value Reference Range Interpretation Comments TROPONIN-I (test code = TROPI) ng/mL 0-0.045 CBC W/O [id number] 13:46:00* Test Item Value Reference Range Interpretation Comments WHITE BLOOD CELL (test code = WBC) 9.8 K/mm3 4.5-12.5 N RED BLOOD CELL (test code = RBC) 4.73 mill/mm3 4.0-5.8 N HEMOGLOBIN (test code = HGB) 14.7 gram/dL 13.0-17.5 N HEMATOCRIT (test code = HCT) 46.9 % 42.0-52.0 N MEAN CELL VOLUME (test code = MCV) 99.2 fL 80-98 H MEAN CELL HGB (test code = MCH) 31.1 picogram 27.0-33.0 N MEAN CELL HGB CONCETRATION (test code = MCHC) 31.3 gram/dL 33.0-36. 0 L RED CELL DISTRIBUTION WIDTH (test code = RDW) 13.5 % 11.6-16. 2 N PLATELET COUNT (test code = PLT) 236 K/mm3 150-450 N MEAN PLATELET VOLUME (test code = MPV) 10.3 fL 6.7-11.0 N - XR CHEST 1 [id number] 12:50:00 FAX: Radha Torres DO [place]: B St: REG FAX: Luis Eduardo De La Paz MD [phone] Name: CRISPIN TOMLIN [facility] : 1960 Age/S: 59/M [address] [facility] Unit #: [id number] Loc: [place] [address] Phys: BrianCaydenRadha DO Acct: [id number] Dis Date: Status: REG ER PHONE #: [phone] Exam Date: 08/13/2019 1224 FAX #: [phone] Reason: CHEST PAIN EXAMS: CPT CODE: [id number] XR CHEST 1 V [id number] REASON FOR EXAM: CHEST PAIN Exam Order Date: 08/13/2019 12:07 PM Ordering M.D.: Radha Torres DO PROCEDURE: - XR CHEST 1 V COMPARISON: Frontal chest x-ray June 17, 2019 FINDINGS: The lungs are clear other than mild subsegmental atelectasis in the left lower lobe. There is no pleural effusion or pneumothorax. Pulmonary vascularity is within normal limits. Cardiomediastinal silhouette is normal in size for technique. The mediastinal contours are within normal limits. Left subclavian ICD is unchanged with the leads terminating in the right ventricle. Coronary sten t is unchanged. Musculoskeletal structures are within normal limit s. The visualized upper abdomen is within normal limits. IMPRESSION: No acute cardiopulmonary process. at 1250 Reported and signed by: Jorge Donohue MD CC: Radha Torres DO; Luis Eduardo Campos MD Technologist: Ingrid Bruno(R)Therese Dai anales RT(R) Trnscrd Date/Time/By: 08/13/2019 (0401) : By: [email or web address] 1 Orig Print D/T: S: 08/13/2019 (7378) PAGE 1 Signed Report URINALYSIS [id number] 20:18:00* Test Item Value Reference Range Interpretation Comments UA COLOR (test code = COLU) YELLOW YELLOW UA APPEARANCE (test code = APPU) CLEAR CLEAR UA GLUCOSE DIPSTICK (test code = DGLUU) NEGATIVE mg/dL NEGATIVE UA BILIRUBIN DIPSTICK (test code = BILU) NEGATIVE mg/dL NEGATIVE UA KETONE DIPSTICK (test code = KETU) TRACE mg/dL NEGATIVE A UA SPECIFIC GRAVITY (test code = SGU) 1.035 1.001-1.035 UA BLOOD DIPSTICK (test code = TRAVIS) Negative mg/dL NEGATIVE UA PH DIPSTICK (test code = KIP) 6.5 5.0-8.0 UA PROTEIN DIPSTICK (test code = PROU) 50 (1+) mg/dL NEGATIVE A UA UROBILINIOGEN DIPSTICK (test code = URO) 3.0 (1+) mg/dL NEGATIVE A UA NITRITE DIPSTICK (test code = KASEY) NEGATIVE NEGATIVE UA LEUKOCYTE ESTERASE W REFLEX (test code = LEUUR) NEGATIVE Chrissy/uL NEGATIVE UA WBC (test code = WBCU) 0-5 per HPF 0-5 UA RBC (test code = RBCU) 6-10 #/HPF 0-5 A UA EPITHELIAL CELLS (test code = EPIU) FEW per HPF FEW UA BACTERIA (test code = BACU) NONE SEEN #/HPF NONE UA CALCIUM OXALATE CRYSTALS (test code = CAOXU) FEW #/HPF NONE A UA MUCUS (test code = MUCU) FEW #/LPF FEW Urine Source? Clean CatchB-TYPE NATRIURETIC [id number] 19:53:00* Test Item Value Reference Range Interpretation Comments B-TYPE NATRIURETIC PEPTIDE (test code = BNP) 30.63 pgram/mL 0-100 N BASIC METABOLIC [id number] 19:38:00* Test Item Value Reference Range Interpretation Comments SODIUM (test code = NA) 145 mmol/L 136-145 N POTASSIUM (test code = K) 4.3 mmol/L 3.5-5.1 N CHLORIDE (test code = CL) 108.0 mmol/L 98-107 H CARBON DIOXIDE (test code = CO2) 28.0 mmol/L 21-32 N ANION GAP (test code = GAP) 13.3 10-20 N GLUCOSE (test code = GLU) 131 mg/dL 74-106 H BLOOD UREA NITROGEN (test code = BUN) 17 mg/dL 7-18 N GLOMERULAR FILTRATION RATE (test code = GFR) > 60 mL/min >=60 Estimated GFR by using Modified MDRD formula.Chronic kidney disease is defined as either kidney damageor GFR <60 mL/min/1.73 m2 for >3 months. CREATININE (test code = CREAT) 0.90 mg/dL 0.7-1.3 N BUN/CREATININE RATIO (test code = BUN/CREA) 19.0 10-20 N CALCIUM (test code = CA) 8.9 mg/dL 8.5-10.1 N HEPATIC FUNCTION [id number] 19:38:00* Test Item Value Reference Range Interpretation Comments TOTAL PROTEIN (test code = PROT) 6.5 gram/dL 6.4-8.2 N ALBUMIN (test code = ALB) 3.4 g/dL 3.4-5.0 N GLOBULIN (test code = GLOB) 3.1 gram/dL 2.7-4.2 N ALBUMIN/GLOBULIN RATIO (test code = A/G) 1.1 0.75-1.50 N BILIRUBIN TOTAL (test code = BILT) 0.10 mg/dL 0.0-1.0 N BILIRUBIN DIRECT (test code = BILD) < 0.05 mg/dL 0.0-0.20 N SGOT/AST (test code = AST) 15 IUnit/L 15-37 N SGPT/ALT (test code = ALT) 24 IUnit/L 12-78 N ALKALINE PHOSPHATASE TOTAL (test code = ALKP) 101 IUnit/L 45-117 N Note change in reference range due to change in reagent. CREATINE KINASE (CK)2019-06-17 19:38:00* Test Item Value Reference Range Interpretation Comments CREATINE KINASE (CK) (test code = CK) 118 IUnit/L 26-208 N [id number] 19:38:00* Test Item Value Reference Range Interpretation Comments LIPASE (test code = LIP) 162 U/L 73.0-393.0 N [id number] 19:38:00* Test Item Value Reference Range Interpretation Comments MAGNESIUM (test code = MAG) 2.0 mg/dL 1.8-2.4 N THYROID STIMULATING [id number] 19:38:00* Test Item Value Reference Range Interpretation Comments THYROID STIMULATING HORMONE (test code = TSH) 0.718 uIU/mL 0.36-3.7 4 N TSH REFERENCE RANGES: EUTHYROID: 0.35 - 4.3 mIU/mL HYPO : > 5.5 mIU/mL HYPER : < 0.35 mIU/mL [id number] 19:38:00* Test Item Value Reference Range Interpretation Comments TROPONIN-I (test code = TROPI) <0.015 ng/mL 0-0.045 N PROTHROMBIN [id number] 19:34:00* Test Item Value Reference Range Interpretation Comments PROTHROMBIN TIME PATIENT (test code = PTP) 10.1 seconds 9.0-14.0 N INTERNATIONAL NORMAL RATIO (test code = INR) 0.9 0.8-1.2 N The therapeutic range for oral anticoagulant therapy formost indications is an international normalized ratio (INR)of between 2.0 and 3.0. The recommended therapeutic INRrange for various clinical situations is listed below: Clinical Situation INR range Pulmonary e mbolism treatment (2.0-3.0)Venous thrombosis treatmentVenous thrombosis prophylaxis (high risk surgery)Prevention of systemic embolism from: Acute myocardial infarction Valvular heart disease Atrial fibrillation Mechanical prosthetic heart valves (2.5-3.5) IS PATIENT ON ANTICOAGULANTS? NTHROMBOPLASTIN TIME [id number] 19:34:00* Test Item Value Reference Range Interpretation Comments THROMBOPLASTIN TIME PARTIAL (test code = PTT) 33.9 seconds 25.0-36. 5 N IS PATIENT ON ANTICOAGULANTS? N- XR CHEST 1 [id number] 19:26:00 FAX: Luis Eduardo De La Paz MD [phone] [place]: St: [facility] FAX: Francy Moise MD [phone] Name: CRISPIN TOMLIN [facility]: 1960 Age/S: 59/M [address] [facility] Unit #: [id number] Loc: [place] [address] Phys: Francy Moise MD Acct: [id number] Dis Date: Status: REG ER PHONE #: [phone] Exam Date: 06/17/2019 1831 FAX #: [phone] Reason: WEAKNESS EXAMS: CPT CODE: [id number] XR CHEST 1 V [id number] REASON FOR EXAM: WEAKNESS Exam Order Date: 06/17/2019 5:56 PM Ordering M.D.: Francy Moise MD PROCEDURE: - XR CHEST 1 V COMPARISON: Frontal chest x-ray April 01, 2019 FINDINGS: Left subclavian AICD is unchanged in po sition with the leads terminating in the region of the right ventricle. The lungs are clear other than mild subsegmental atelectasis in the left lung base. There is no pleural effusion or pneumothorax. Pulmo nary vascularity is within normal limits. Cardiomediastinal silhou ette is normal in size for technique. The mediastinal contours are within normal limits. Musculoskeletal structures are within normal limits . The visualized upper abdomen is within normal limits. IMPRESSION: No acute cardiopulmonary process. at 192 Reported and signed by: Jorge Donohue MD CC: Luis Eduardo Campos MD; Francy Moise MD Technologist: MERRILL RollinsR Trnscrd Date/Time/By: 06/17/2019 (1925) : By: [email or web address] Orig Print D/T: S: 06/17/2019 (1928) PAGE 1 Signed Report BASIC METABOLIC [id number] 19:24:00* Test Item Value Reference Range Interpretation Comments SODIUM (test code = NA) 145 mmol/L 136-145 N POTASSIUM (test code = K) 4.3 mmol/L 3.5-5.1 N CHLORIDE (test code = CL) 108.0 mmol/L 98-107 H CARBON DIOXIDE (test code = CO2) mmol/L 21-32 ANION GAP (test code = GAP) 10-20 GLUCOSE (test code = GLU) mg/dL 74-106 BLOOD UREA NITROGEN (test code = BUN) mg/dL 7-18 GLOMERULAR FILTRATION RATE (test code = GFR) mL/min >=60 CREATININE (test code = CREAT) mg/dL 0.7-1.3 BUN/CREATININE RATIO (test code = BUN/CREA) 10-20 CALCIUM (test code = CA) mg/dL 8.5-10.1 HEPATIC FUNCTION [id number] 19:24:00* Test Item Value Reference Range Interpretation Comments TOTAL PROTEIN (test code = PROT) gram/dL 6.4-8.2 ALBUMIN (test code = ALB) g/dL 3.4-5.0 GLOBULIN (test code = GLOB) gram/dL 2.7-4.2 ALBUMIN/GLOBULIN RATIO (test code = A/G) 0.75-1.50 BILIRUBIN TOTAL (test code = BILT) mg/dL 0.0-1.0 BILIRUBIN DIRECT (test code = BILD) mg/dL 0.0-0.20 SGOT/AST (test code = AST) IUnit/L 15-37 SGPT/ALT (test code = ALT) IUnit/L 12-78 ALKALINE PHOSPHATASE TOTAL (test code = ALKP) IUnit/L 45-117 CREATINE KINASE (CK)2019-06-17 19:24:00* Test Item Value Reference Range Interpretation Comments CREATINE KINASE (CK) (test code = CK) IUnit/L 26-208 [id number] 19:24:00* Test Item Value Reference Range Interpretation Comments LIPASE (test code = LIP) U/L 73.0-393.0 [id number] 19:24:00* Test Item Value Reference Range Interpretation Comments MAGNESIUM (test code = MAG) mg/dL 1.8-2.4 THYROID STIMULATING [id number] 19:24:00* Test Item Value Reference Range Interpretation Comments THYROID STIMULATING HORMONE (test code = TSH) uIU/mL 0.36-3.7 4 [id number] 19:24:00* Test Item Value Reference Range Interpretation Comments TROPONIN-I (test code = TROPI) ng/mL 0-0.045 CBC W/O [id number] 19:15:00* Test Item Value Reference Range Interpretation Comments WHITE BLOOD CELL (test code = WBC) 10.6 K/mm3 4.5-12.5 N RED BLOOD CELL (test code = RBC) 4.78 mill/mm3 4.0-5.8 N HEMOGLOBIN (test code = HGB) 14.7 gram/dL 13.0-17.5 N HEMATOCRIT (test code = HCT) 45.5 % 42.0-52.0 N MEAN CELL VOLUME (test code = MCV) 95.2 fL 80-98 N MEAN CELL HGB (test code = MCH) 30.8 picogram 27.0-33.0 N MEAN CELL HGB CONCETRATION (test code = MCHC) 32.3 gram/dL 33.0-36. 0 L RED CELL DISTRIBUTION WIDTH (test code = RDW) 13.4 % 11.6-16. 2 N PLATELET COUNT (test code = PLT) 261 K/mm3 150-450 N MEAN PLATELET VOLUME (test code = MPV) 10.3 fL 6.7-11.0 N CBC W/O [id number] 19:13:00* Test Item Value Reference Range Interpretation Comments WHITE BLOOD CELL (test code = WBC) K/mm3 4.5-12.5 RED BLOOD CELL (test code = RBC) mill/mm3 4.0-5.8 HEMOGLOBIN (test code = HGB) 14.7 gram/dL 13.0-17.5 N HEMATOCRIT (test code = HCT) 45.5 % 42.0-52.0 N MEAN CELL VOLUME (test code = MCV) fL 80-98 MEAN CELL HGB (test code = MCH) picogram 27.0-33.0 MEAN CELL HGB CONCETRATION (test code = MCHC) gram/dL 33.0-36. 0 RED CELL DISTRIBUTION WIDTH (test code = RDW) % 11.6-16. 2 PLATELET COUNT (test code = PLT) K/mm3 150-450 MEAN PLATELET VOLUME (test code = MPV) fL 6.7-11.0 - CT ABD PELVIS [id number] 19:46:00 Name: CRISPIN TOMLIN [facility] : 1960 Age/S: 59 / M [address] [facility] Unit #: [id number] Loc: [place] [address] Phys: Tamiko Yee MD Acct: [id number] Dis Date: Status: REG ER PHONE #: [phone] Exam Date: 06/16/20191922 FAX #: [phone] Reason: abd pain, nausea EXAMS: CPT CODE: [id number] CT ABD PELVIS W/CONT 31172 HISTORY: Abdominal pain and nausea. COMPARISON: None available. CT of abdomen and pelvis with IV contrast: 100 mL of Isovue-370. Automated exposure control CT abdomen: The lung bases are clear. Dependent changes on the left. The liver is enhancing homogeneously. Gallbladder is without radiopaque stones. The liver is measuring 21.7 cm in length. Portal vein and hepatic artery are patent. Unremarkable spleen. The stomach distended incompletely but it is normal in appearance. Pancreas is enhancing homogeneously. Hyperplastic left adrenal. Right adrenal nodule measured 2.6 cm with average Hounsfield unit measurement of 23 which is unchanged from previous examination likely adenoma. Kidneys are free from hydroureteronephrosis. Homogeneous enhancement. Bilateral excretion. 2 to 3 mm calcification within the left lower pole. No pathologic adenopathy. Atherosclerotic change of the abdominal and pelvic vasculature. No bowel obstruction or colitis or diverticulitis or enteritis. Constipation. CT PELVIS: Appendix is normal. Pelvic bowel loops are unobstructed. Decompressed urinary bladder is limited. The prostate is measuring 5.7 cm. No pelvic pathologic adenopathy. No free fluid or free air or abscess. Subcutaneous tissues and the musculature are normal in appearance. No lytic or blastic lesions are noted within the bony skeleton DJD. IMPRESSION: PAGE 1 Signed Report (CONTINUED) Name: CRISPIN TOMLIN [facility] : 1960 Age/S: 59 / M [address] [facility] Unit #: [id number] Loc: [place] [address] Phys: Tamiko Yee MD Acct: [id number] Dis Date: Status: REG ER PHONE #: [phone] Exam Date: 2018 FAX #: [phone] Reason: abd pain, nausea EXAMS: CPT CODE: [id number] CT ABD PELVIS W/CONT 44025 <Continued> No acute intra-abdominal or intrapelvic pathology. at 1946 Reported and signed by: Roger Christensen M.D. CC: Tamiko Yee MD; Luis Eduardo Campos MD Technologist:Nai Kolb RT(R) CTDI: DLP: Trnscb Date/Time: 06/16/2019 (1946) t.[email or web address] Orig Print D/T: S: 06/16/2019 (1950) PAGE 2 Signed Report BASIC METABOLIC [id number] 18:54:00* Test Item Value Reference Range Interpretation Comments SODIUM (test code = NA) 139 mmol/L 136-145 N POTASSIUM (test code = K) 3.9 mmol/L 3.5-5.1 N CHLORIDE (test code = CL) 107.0 mmol/L 98-107 N CARBON DIOXIDE (test code = CO2) 24.0 mmol/L 21-32 N ANION GAP (test code = GAP) 11.9 10-20 N GLUCOSE (test code = GLU) 160 mg/dL 74-106 H BLOOD UREA NITROGEN (test code = BUN) 13 mg/dL 7-18 N GLOMERULAR FILTRATION RATE (test code = GFR) > 60 mL/min >=60 Estimated GFR by using Modified MDRD formula.Chronic kidney disease is defined as either kidney damageor GFR <60 mL/min/1.73 m2 for >3 months. CREATININE (test code = CREAT) 0.90 mg/dL 0.7-1.3 N BUN/CREATININE RATIO (test code = BUN/CREA) 14.8 10-20 N CALCIUM (test code = CA) 9.7 mg/dL 8.5-10.1 N HEPATIC FUNCTION [id number] 18:54:00* Test Item Value Reference Range Interpretation Comments TOTAL PROTEIN (test code = PROT) 7.2 gram/dL 6.4-8.2 N ALBUMIN (test code = ALB) 3.6 g/dL 3.4-5.0 N GLOBULIN (test code = GLOB) 3.6 gram/dL 2.7-4.2 N ALBUMIN/GLOBULIN RATIO (test code = A/G) 1.0 0.75-1.50 N BILIRUBIN TOTAL (test code = BILT) 0.10 mg/dL 0.0-1.0 N BILIRUBIN DIRECT (test code = BILD) < 0.05 mg/dL 0.0-0.20 N SGOT/AST (test code = AST) 13 IUnit/L 15-37 L SGPT/ALT (test code = ALT) 29 IUnit/L 12-78 N ALKALINE PHOSPHATASE TOTAL (test code = ALKP) 100 IUnit/L 45-117 N Note change in reference range due to change in reagent. [id number] 18:54:00* Test Item Value Reference Range Interpretation Comments LIPASE (test code = LIP) 130 U/L 73.0-393.0 N [id number] 18:54:00* Test Item Value Reference Range Interpretation Comments TROPONIN-I (test code = TROPI) <0.015 ng/mL 0-0.045 N BASIC METABOLIC [id number] 18:35:00* Test Item Value Reference Range Interpretation Comments SODIUM (test code = NA) 139 mmol/L 136-145 N POTASSIUM (test code = K) 3.9 mmol/L 3.5-5.1 N CHLORIDE (test code = CL) 107.0 mmol/L 98-107 N CARBON DIOXIDE (test code = CO2) mmol/L 21-32 ANION GAP (test code = GAP) 10-20 GLUCOSE (test code = GLU) mg/dL 74-106 BLOOD UREA NITROGEN (test code = BUN) mg/dL 7-18 GLOMERULAR FILTRATION RATE (test code = GFR) mL/min >=60 CREATININE (test code = CREAT) mg/dL 0.7-1.3 BUN/CREATININE RATIO (test code = BUN/CREA) 10-20 CALCIUM (test code = CA) mg/dL 8.5-10.1 HEPATIC FUNCTION [id number] 18:35:00* Test Item Value Reference Range Interpretation Comments TOTAL PROTEIN (test code = PROT) gram/dL 6.4-8.2 ALBUMIN (test code = ALB) g/dL 3.4-5.0 GLOBULIN (test code = GLOB) gram/dL 2.7-4.2 ALBUMIN/GLOBULIN RATIO (test code = A/G) 0.75-1.50 BILIRUBIN TOTAL (test code = BILT) mg/dL 0.0-1.0 BILIRUBIN DIRECT (test code = BILD) mg/dL 0.0-0.20 SGOT/AST (test code = AST) IUnit/L 15-37 SGPT/ALT (test code = ALT) IUnit/L 12-78 ALKALINE PHOSPHATASE TOTAL (test code = ALKP) IUnit/L 45-117 [id number] 18:35:00* Test Item Value Reference Range Interpretation Comments LIPASE (test code = LIP) U/L 73.0-393.0 [id number] 18:35:00* Test Item Value Reference Range Interpretation Comments TROPONIN-I (test code = TROPI) ng/mL 0-0.045 URINALYSIS [id number] 17:28:00* Test Item Value Reference Range Interpretation Comments UA COLOR (test code = COLU) COLORLESS YELLOW A UA APPEARANCE (test code = APPU) CLEAR CLEAR UA GLUCOSE DIPSTICK (test code = DGLUU) NEGATIVE mg/dL NEGATIVE UA BILIRUBIN DIPSTICK (test code = BILU) NEGATIVE mg/dL NEGATIVE UA KETONE DIPSTICK (test code = KETU) NEGATIVE mg/dL NEGATIVE UA SPECIFIC GRAVITY (test code = SGU) 1.004 1.001-1.035 UA BLOOD DIPSTICK (test code = TRAVIS) Negative mg/dL NEGATIVE UA PH DIPSTICK (test code = KIP) 6.0 5.0-8.0 UA PROTEIN DIPSTICK (test code = PROU) NEGATIVE mg/dL NEGATIVE UA UROBILINIOGEN DIPSTICK (test code = URO) Normal mg/dL NEGATIVE UA NITRITE DIPSTICK (test code = KASEY) NEGATIVE NEGATIVE UA LEUKOCYTE ESTERASE W REFLEX (test code = LEUUR) NEGATIVE Chrissy/uL NEGATIVE UA WBC (test code = WBCU) per HPF 0-5 UA RBC (test code = RBCU) per HPF 0-5 UA EPITHELIAL CELLS (test code = EPIU) per HPF Few UA BACTERIA (test code = BACU) per HPF NONE Urine Source? Clean CatchURINALYSIS [id number] 17:28:00* Test Item Value Reference Range Interpretation Comments UA COLOR (test code = COLU) COLORLESS YELLOW A UA APPEARANCE (test code = APPU) CLEAR CLEAR UA GLUCOSE DIPSTICK (test code = DGLUU) NEGATIVE mg/dL NEGATIVE UA BILIRUBIN DIPSTICK (test code = BILU) NEGATIVE mg/dL NEGATIVE UA KETONE DIPSTICK (test code = KETU) NEGATIVE mg/dL NEGATIVE UA SPECIFIC GRAVITY (test code = SGU) 1.004 1.001-1.035 UA BLOOD DIPSTICK (test code = TRAVIS) Negative mg/dL NEGATIVE UA PH DIPSTICK (test code = KIP) 6.0 5.0-8.0 UA PROTEIN DIPSTICK (test code = PROU) NEGATIVE mg/dL NEGATIVE UA UROBILINIOGEN DIPSTICK (test code = URO) Normal mg/dL NEGATIVE UA NITRITE DIPSTICK (test code = KASEY) NEGATIVE NEGATIVE UA LEUKOCYTE ESTERASE W REFLEX (test code = LEUUR) NEGATIVE Chrissy/uL NEGATIVE UA WBC (test code = WBCU) 0-5 per HPF 0-5 UA RBC (test code = RBCU) 0-3 #/HPF 0-5 UA EPITHELIAL CELLS (test code = EPIU) Rare (0-1/hpf) per HPF FEW UA BACTERIA (test code = BACU) TRACE #/HPF NONE Urine Source? Clean CatchCBC W/O [id number] 17:23:00* Test Item Value Reference Range Interpretation Comments WHITE BLOOD CELL (test code = WBC) 13.9 K/mm3 4.5-12.5 H RED BLOOD CELL (test code = RBC) 4.78 mill/mm3 4.0-5.8 N HEMOGLOBIN (test code = HGB) 14.9 gram/dL 13.0-17.5 N HEMATOCRIT (test code = HCT) 45.0 % 42.0-52.0 N MEAN CELL VOLUME (test code = MCV) 94.1 fL 80-98 N MEAN CELL HGB (test code = MCH) 31.2 picogram 27.0-33.0 N MEAN CELL HGB CONCETRATION (test code = MCHC) 33.1 gram/dL 33.0-36. 0 N RED CELL DISTRIBUTION WIDTH (test code = RDW) 13.2 % 11.6-16. 2 N PLATELET COUNT (test code = PLT) 263 K/mm3 150-450 N MEAN PLATELET VOLUME (test code = MPV) 10.3 fL 6.7-11.0 N CBC W/O [id number] 17:21:00* Test Item Value Reference Range Interpretation Comments WHITE BLOOD CELL (test code = WBC) K/mm3 4.5-12.5 RED BLOOD CELL (test code = RBC) mill/mm3 4.0-5.8 HEMOGLOBIN (test code = HGB) 14.9 gram/dL 13.0-17.5 N HEMATOCRIT (test code = HCT) 45.0 % 42.0-52.0 N MEAN CELL VOLUME (test code = MCV) fL 80-98 MEAN CELL HGB (test code = MCH) picogram 27.0-33.0 MEAN CELL HGB CONCETRATION (test code = MCHC) gram/dL 33.0-36. 0 RED CELL DISTRIBUTION WIDTH (test code = RDW) % 11.6-16. 2 PLATELET COUNT (test code = PLT) K/mm3 150-450 MEAN PLATELET VOLUME (test code = MPV) fL 6.7-11.0 DRUGS OF ABUSE SCREEN [id number] 22:55:00* Test Item Value Reference Range Interpretation Comments UA PH DIPSTICK (test code = KIP) 6.0 5.0-8.0 URN COCAINE (test code = COCAURN) NEGATIVE <300 ng/mL URN CANNABINOIDS (test code = CANNABURN) POSITIVE <50 ng/mL A This test provides only a preliminary test result. A morespecific alternate chemical method must be used in order toobtain a confirmed analytical result. Gas chromatography/mass spectrometry (GC/MS) is thepreferred confirmatory method. Other chemical confirmationmethods are available. Clinical consideration and professional judgment should be applied to any drug of abusetest result, particularly when preliminary positive resultsare used.Unconfirmed screening results must not be used fornon-medical purposes (e.g., employment testing, legaltesting). URN AMPHETAMINE (test code = AMPHETURN) NEGATIVE <1000 ng/mL URN BARBITURATE (test code = BARBITURN) NEGATIVE <200 ng/mL URN BENZODIAZEPINE (test code = BENZOURN) NEGATIVE <200 ng/mL URN OPIATES (test code = OPIATURN) POSITIVE <300 ng/mL A This test provides only a preliminary test result. A morespecific alternate chemical method must be used in order toobtain a confirmed analytical result. Gas chromatography/mass spectrometry (GC/MS) is thepreferred confirmatory method. Other chemical confirmationmethods are available. Clinical consideration and professional judgment should be applied to any drug of abusetest result, particularly when preliminary positive resultsare used.Unconfirmed screening results must not be used fornon-medical purposes (e.g., employment testing, legaltesting). URN PHENCYCLIDINE (PCP) (test code = PHENCURN) NEGATIVE <25 ng/ mL URN METHADONE (test code = METHAURN) NEGATIVE <300 ng/mL URINALYSIS [id number] 22:24:00* Test Item Value Reference Range Interpretation Comments UA COLOR (test code = COLU) YELLOW YELLOW UA APPEARANCE (test code = APPU) CLEAR CLEAR UA GLUCOSE DIPSTICK (test code = DGLUU) NEGATIVE mg/dL NEGATIVE UA BILIRUBIN DIPSTICK (test code = BILU) NEGATIVE mg/dL NEGATIVE UA KETONE DIPSTICK (test code = KETU) TRACE mg/dL NEGATIVE A UA SPECIFIC GRAVITY (test code = SGU) 1.023 1.001-1.035 UA BLOOD DIPSTICK (test code = TRAVIS) Negative mg/dL NEGATIVE UA PH DIPSTICK (test code = KIP) 6.0 5.0-8.0 UA PROTEIN DIPSTICK (test code = PROU) 20 (Trace) mg/dL NEGATIVE A UA UROBILINIOGEN DIPSTICK (test code = URO) Normal mg/dL NEGATIVE UA NITRITE DIPSTICK (test code = KASEY) NEGATIVE NEGATIVE UA LEUKOCYTE ESTERASE W REFLEX (test code = LEUUR) NEGATIVE Chrissy/uL NEGATIVE UA WBC (test code = WBCU) 6-10 per HPF 0-5 A UA RBC (test code = RBCU) 3-5 #/HPF 0-5 UA EPITHELIAL CELLS (test code = EPIU) Few (2-5/hpf) per HPF FEW UA BACTERIA (test code = BACU) FEW #/HPF NONE A UA MUCUS (test code = MUCU) FEW #/LPF FEW Urine Source? Clean CatchURINALYSIS [id number] 22:20:00* Test Item Value Reference Range Interpretation Comments UA COLOR (test code = COLU) YELLOW YELLOW UA APPEARANCE (test code = APPU) CLEAR CLEAR UA GLUCOSE DIPSTICK (test code = DGLUU) NEGATIVE mg/dL NEGATIVE UA BILIRUBIN DIPSTICK (test code = BILU) NEGATIVE mg/dL NEGATIVE UA KETONE DIPSTICK (test code = KETU) TRACE mg/dL NEGATIVE A UA SPECIFIC GRAVITY (test code = SGU) 1.023 1.001-1.035 UA BLOOD DIPSTICK (test code = TRAVIS) Negative mg/dL NEGATIVE UA PH DIPSTICK (test code = KIP) 6.0 5.0-8.0 UA PROTEIN DIPSTICK (test code = PROU) 20 (Trace) mg/dL NEGATIVE A UA UROBILINIOGEN DIPSTICK (test code = URO) Normal mg/dL NEGATIVE UA NITRITE DIPSTICK (test code = KASEY) NEGATIVE NEGATIVE UA LEUKOCYTE ESTERASE W REFLEX (test code = LEUUR) NEGATIVE Chrissy/uL NEGATIVE UA WBC (test code = WBCU) per HPF 0-5 UA RBC (test code = RBCU) per HPF 0-5 UA EPITHELIAL CELLS (test code = EPIU) per HPF Few UA BACTERIA (test code = BACU) per HPF NONE Urine Source? Clean CatchDRUGS OF ABUSE SCREEN [id number] 22:03:00* Test Item Value Reference Range Interpretation Comments UA PH DIPSTICK (test code = KIP) 6.0 5.0-8.0 URN COCAINE (test code = COCAURN) <300 ng/mL URN CANNABINOIDS (test code = CANNABURN) <50 ng/mL URN AMPHETAMINE (test code = AMPHETURN) <1000 ng/mL URN BARBITURATE (test code = BARBITURN) <200 ng/mL URN BENZODIAZEPINE (test code = BENZOURN) <200 ng/mL URN OPIATES (test code = OPIATURN) <300 ng/mL URN PHENCYCLIDINE (PCP) (test code = PHENCURN) <25 ng/ mL URN METHADONE (test code = METHAURN) <300 ng/mL - CT HEAD/BRAIN W/O [id number] 22:00:00 Name: CRISPIN TOMLIN [facility] : 1960 Age/S: 59 / M [address] [facility] Unit #: [id number] Loc: [place] [address] Phys: Mary Cummings CODE INSPECTOR Acct: [id number] Dis Date: Status: REG ER PHONE #: [phone] Exam Date: 04/15/20192151 FAX #: [phone] Reason: dizziness EXAMS: CPT CODE: [id number] CT HEAD/BRAIN W/O CONT [id number] REASON FOR EXAM: dizziness EXAM ORDER DATE: 04/15/2019 5:08 PM Ordering Marilyn: Mary Cummings NP PROCEDURE: - CT HEAD/BRAIN W/O CONT COMPARISON: FINDINGS: CT images of the brain were obtained without IV contrast. Dose modulation, iterative reconstruction, and/or weight based adjustment of the MA/KV was utilized to reduce the radiation dose to as low as reasonably achievable. The brain parenchyma is within normal limits. The buckner-white matter delineation is unremarkable. The ventricles, cisterns, and sulci are unremarkable. There is no evidence of hemorrhage, mass, mass effect. There is no evidence of acute or old infarct. The calvarium is intact. IMPRESSION: Unremarkable brain. at 2200 Reported and signed by: Satya Granados M.D. CC: Mary Cummings NP; Luis Eduardo Campos MD Technologist:Nai MORRIS(R); DION Salazar CTDI: DLP: Trnscb Date/Time: 04/15/2019 (2199) t.SDR.VTL Orig Print D/T: S: 04/15/2019 (2202) PAGE 1 Signed Report BASIC METABOLIC [id number] 18:08:00* Test Item Value Reference Range Interpretation Comments SODIUM (test code = NA) 142 mmol/L 136-145 N POTASSIUM (test code = K) 4.1 mmol/L 3.5-5.1 N CHLORIDE (test code = CL) 110.0 mmol/L 98-107 H CARBON DIOXIDE (test code = CO2) 24.0 mmol/L 21-32 N ANION GAP (test code = GAP) 12.1 10-20 N GLUCOSE (test code = GLU) 116 mg/dL 74-106 H BLOOD UREA NITROGEN (test code = BUN) 13 mg/dL 7-18 N GLOMERULAR FILTRATION RATE (test code = GFR) > 60 mL/min >=60 Estimated GFR by using Modified MDRD formula.Chronic kidney disease is defined as either kidney damageor GFR <60 mL/min/1.73 m2 for >3 months. CREATININE (test code = CREAT) 0.80 mg/dL 0.7-1.3 N BUN/CREATININE RATIO (test code = BUN/CREA) 16.3 10-20 N CALCIUM (test code = CA) 9.2 mg/dL 8.5-10.1 N [id number] 18:08:00* Test Item Value Reference Range Interpretation Comments TROPONIN-I (test code = TROPI) <0.015 ng/mL 0-0.045 N BASIC METABOLIC [id number] 17:53:00* Test Item Value Reference Range Interpretation Comments SODIUM (test code = NA) 142 mmol/L 136-145 N POTASSIUM (test code = K) 4.1 mmol/L 3.5-5.1 N CHLORIDE (test code = CL) 110.0 mmol/L 98-107 H CARBON DIOXIDE (test code = CO2) mmol/L 21-32 ANION GAP (test code = GAP) 10-20 GLUCOSE (test code = GLU) mg/dL 74-106 BLOOD UREA NITROGEN (test code = BUN) mg/dL 7-18 GLOMERULAR FILTRATION RATE (test code = GFR) mL/min >=60 CREATININE (test code = CREAT) mg/dL 0.7-1.3 BUN/CREATININE RATIO (test code = BUN/CREA) 10-20 CALCIUM (test code = CA) mg/dL 8.5-10.1 [id number] 17:53:00* Test Item Value Reference Range Interpretation Comments TROPONIN-I (test code = TROPI) ng/mL 0-0.045 CBC W/O [id number] 17:38:00* Test Item Value Reference Range Interpretation Comments WHITE BLOOD CELL (test code = WBC) 10.6 K/mm3 4.5-12.5 N RED BLOOD CELL (test code = RBC) 4.83 mill/mm3 4.0-5.8 N HEMOGLOBIN (test code = HGB) 14.7 gram/dL 13.0-17.5 N HEMATOCRIT (test code = HCT) 45.7 % 42.0-52.0 N MEAN CELL VOLUME (test code = MCV) 94.6 fL 80-98 N MEAN CELL HGB (test code = MCH) 30.4 picogram 27.0-33.0 N MEAN CELL HGB CONCETRATION (test code = MCHC) 32.2 gram/dL 33.0-36. 0 L RED CELL DISTRIBUTION WIDTH (test code = RDW) 13.0 % 11.6-16. 2 N PLATELET COUNT (test code = PLT) 249 K/mm3 150-450 N MEAN PLATELET VOLUME (test code = MPV) 10.5 fL 6.7-11.0 N CBC W/O [id number] 17:33:00* Test Item Value Reference Range Interpretation Comments WHITE BLOOD CELL (test code = WBC) K/mm3 4.5-12.5 RED BLOOD CELL (test code = RBC) mill/mm3 4.0-5.8 HEMOGLOBIN (test code = HGB) 14.7 gram/dL 13.0-17.5 N HEMATOCRIT (test code = HCT) 45.7 % 42.0-52.0 N MEAN CELL VOLUME (test code = MCV) fL 80-98 MEAN CELL HGB (test code = MCH) picogram 27.0-33.0 MEAN CELL HGB CONCETRATION (test code = MCHC) gram/dL 33.0-36. 0 RED CELL DISTRIBUTION WIDTH (test code = RDW) % 11.6-16. 2 PLATELET COUNT (test code = PLT) K/mm3 150-450 MEAN PLATELET VOLUME (test code = MPV) fL 6.7-11.0 [id number] 07:49:00* Test Item Value Reference Range Interpretation Comments GLUBED (test code = GLUBED) 151 mg/dL 74-106 H Performed by certified clasp machine operator at [facility] [id number] 20:28:00* Test Item Value Reference Range Interpretation Comments GLUBED (test code = GLUBED) 181 mg/dL 74-106 H Performed by certified clasp machine operator at [facility] [id number] 17:05:00* Test Item Value Reference Range Interpretation Comments GLUBED (test code = GLUBED) 141 mg/dL 74-106 H Performed by certified clasp machine operator at [facility] [id number] 12:06:00* Test Item Value Reference Range Interpretation Comments GLUBED (test code = GLUBED) 148 mg/dL 74-106 H Performed by certified clasp machine operator at [facility] PROTHROMBIN [id number] 06:07:00* Test Item Value Reference Range Interpretation Comments PROTHROMBIN TIME PATIENT (test code = PTP) 11.6 seconds 9.0-14.0 N INTERNATIONAL NORMAL RATIO (test code = INR) 1.0 0.8-1.2 N The therapeutic range for oral anticoagulant therapy formost indications is an international normalized ratio (INR)of between 2.0 and 3.0. The recommended therapeutic INRrange for various clinical situations is listed below: Clinical Situation INR range Pulmonary e mbolism treatment (2.0-3.0)Venous thrombosis treatmentVenous thrombosis prophylaxis (high risk surgery)Prevention of systemic embolism from: Acute myocardial infarction Valvular heart disease Atrial fibrillation Mechanical prosthetic heart valves (2.5-3.5) IS PATIENT ON ANTICOAGULANTS? YLIST ANTICOAGULANTS ASPIRINTHROMBOPLASTIN TIME [id number] 06:07:00* Test Item Value Reference Range Interpretation Comments THROMBOPLASTIN TIME PARTIAL (test code = PTT) 32.9 seconds 25.0-36. 5 N IS PATIENT ON ANTICOAGULANTS? YLIST ANTICOAGULANTS ASPIRINCBC W/AUTO DIFF 2019-04-04 05:58:00* Test Item Value Reference Range Interpretation Comments WHITE BLOOD CELL (test code = WBC) 9.6 K/mm3 4.5-12.5 N RED BLOOD CELL (test code = RBC) 4.98 mill/mm3 4.0-5.8 N HEMOGLOBIN (test code = HGB) 15.2 gram/dL 13.0-17.5 N HEMATOCRIT (test code = HCT) 46.9 % 42.0-52.0 N MEAN CELL VOLUME (test code = MCV) 94.2 fL 80-98 N MEAN CELL HGB (test code = MCH) 30.5 picogram 27.0-33.0 N MEAN CELL HGB CONCETRATION (test code = MCHC) 32.4 gram/dL 33.0-36. 0 L RED CELL DISTRIBUTION WIDTH (test code = RDW) 12.6 % 11.6-16. 2 N RED CELL DISTRIBUTION WIDTH SD (test code = RDW-SD) 43.5 fL 37 .0-51.0 N PLATELET COUNT (test code = PLT) 213 K/mm3 150-450 N MEAN PLATELET VOLUME (test code = MPV) 10.3 fL 6.7-11.0 N NEUTROPHIL % (test code = NT%) 62.7 % 39.0-69.0 N IMMATURE GRANULOCYTE % (test code = IG%) 0.3 % 0.0-5.0 N LYMPHOCYTE % (test code = LY%) 25.7 % 25.0-55.0 N MONOCYTE % (test code = MO%) 7.2 % 0.0-10.0 N EOSINOPHIL % (test code = EO%) 3.6 % 0.0-5.0 N BASOPHIL % (test code = BA%) 0.5 % 0.0-1.0 N NUCLEATED RBC % (test code = NRBC%) 0.0 % 0-0 N NEUTROPHIL # (test code = NT#) 6.00 K/mm3 1.8-7.7 N IMMATURE GRANULOCYTE # (test code = IG#) 0.03 x10 3/uL 0-0.03 N LYMPHOCYTE # (test code = LY#) 2.46 K/mm3 1.0-5.0 N MONOCYTE # (test code = MO#) 0.69 K/mm3 0-0.8 N EOSINOPHIL # (test code = EO#) 0.34 K/mm3 0.0-0.5 N BASOPHIL # (test code = BA#) 0.05 K/mm3 0.0-0.2 N NUCLEATED RBC # (test code = NRBC#) 0.00 K/mm3 0.0-0.1 N MANUAL DIFF REQUIRED (test code = MDIFF) NO CBC W/AUTO [id number] 05:53:00* Test Item Value Reference Range Interpretation Comments WHITE BLOOD CELL (test code = WBC) K/mm3 4.5-12.5 RED BLOOD CELL (test code = RBC) mill/mm3 4.0-5.8 HEMOGLOBIN (test code = HGB) 15.2 gram/dL 13.0-17.5 N HEMATOCRIT (test code = HCT) 46.9 % 42.0-52.0 N MEAN CELL VOLUME (test code = MCV) fL 80-98 MEAN CELL HGB (test code = MCH) picogram 27.0-33.0 MEAN CELL HGB CONCETRATION (test code = MCHC) gram/dL 33.0-36. 0 RED CELL DISTRIBUTION WIDTH (test code = RDW) % 11.6-16. 2 RED CELL DISTRIBUTION WIDTH SD (test code = RDW-SD) fL 37 .0-51.0 PLATELET COUNT (test code = PLT) K/mm3 150-450 MEAN PLATELET VOLUME (test code = MPV) fL 6.7-11.0 NEUTROPHIL % (test code = NT%) % 39.0-69.0 IMMATURE GRANULOCYTE % (test code = IG%) % 0.0-5.0 LYMPHOCYTE % (test code = LY%) % 25.0-55.0 MONOCYTE % (test code = MO%) % 0.0-10.0 EOSINOPHIL % (test code = EO%) % 0.0-5.0 BASOPHIL % (test code = BA%) % 0.0-1.0 NEUTROPHIL # (test code = NT#) K/mm3 1.8-7.7 LYMPHOCYTE # (test code = LY#) K/mm3 1.0-5.0 MONOCYTE # (test code = MO#) K/mm3 0-0.8 EOSINOPHIL # (test code = EO#) K/mm3 0.0-0.5 BASOPHIL # (test code = BA#) K/mm3 0.0-0.2 BASIC METABOLIC [id number] 05:50:00* Test Item Value Reference Range Interpretation Comments SODIUM (test code = NA) 143 mmol/L 136-145 N POTASSIUM (test code = K) 4.0 mmol/L 3.5-5.1 N CHLORIDE (test code = CL) 112.0 mmol/L 98-107 H CARBON DIOXIDE (test code = CO2) 26.0 mmol/L 21-32 N ANION GAP (test code = GAP) 9.0 10-20 L GLUCOSE (test code = GLU) 129 mg/dL 74-106 H BLOOD UREA NITROGEN (test code = BUN) 12 mg/dL 7-18 N GLOMERULAR FILTRATION RATE (test code = GFR) > 60 mL/min >=60 Estimated GFR by using Modified MDRD formula.Chronic kidney disease is defined as either kidney damageor GFR <60 mL/min/1.73 m2 for >3 months. CREATININE (test code = CREAT) 0.80 mg/dL 0.7-1.3 N BUN/CREATININE RATIO (test code = BUN/CREA) 15.0 10-20 N CALCIUM (test code = CA) 8.7 mg/dL 8.5-10.1 N BASIC METABOLIC [id number] 05:43:00* Test Item Value Reference Range Interpretation Comments SODIUM (test code = NA) 143 mmol/L 136-145 N POTASSIUM (test code = K) 4.0 mmol/L 3.5-5.1 N CHLORIDE (test code = CL) 112.0 mmol/L 98-107 H CARBON DIOXIDE (test code = CO2) mmol/L 21-32 ANION GAP (test code = GAP) 10-20 GLUCOSE (test code = GLU) mg/dL 74-106 BLOOD UREA NITROGEN (test code = BUN) mg/dL 7-18 GLOMERULAR FILTRATION RATE (test code = GFR) mL/min >=60 CREATININE (test code = CREAT) mg/dL 0.7-1.3 BUN/CREATININE RATIO (test code = BUN/CREA) 10-20 CALCIUM (test code = CA) mg/dL 8.5-10.1 [id number] 21:07:00* Test Item Value Reference Range Interpretation Comments GLUBED (test code = GLUBED) 200 mg/dL 74-106 H Performed by certified clasp machine operator at [facility] [id number] 18:19:00* Test Item Value Reference Range Interpretation Comments GLUBED (test code = GLUBED) 145 mg/dL 74-106 H Performed by certified clasp machine operator at [facility] BASIC METABOLIC [id number] 09:04:00* Test Item Value Reference Range Interpretation Comments SODIUM (test code = NA) 142 mmol/L 136-145 N POTASSIUM (test code = K) 3.8 mmol/L 3.5-5.1 N CHLORIDE (test code = CL) 112.0 mmol/L 98-107 H CARBON DIOXIDE (test code = CO2) 26.0 mmol/L 21-32 N ANION GAP (test code = GAP) 7.8 10-20 L GLUCOSE (test code = GLU) 130 mg/dL 74-106 H BLOOD UREA NITROGEN (test code = BUN) 10 mg/dL 7-18 N GLOMERULAR FILTRATION RATE (test code = GFR) > 60 mL/min >=60 Estimated GFR by using Modified MDRD formula.Chronic kidney disease is defined as either kidney damageor GFR <60 mL/min/1.73 m2 for >3 months. CREATININE (test code = CREAT) 0.80 mg/dL 0.7-1.3 N BUN/CREATININE RATIO (test code = BUN/CREA) 12.5 10-20 N CALCIUM (test code = CA) 8.7 mg/dL 8.5-10.1 N LIPID PROFILE (CORONARY RISK)2019-04-03 09:04:00* Test Item Value Reference Range Interpretation Comments TRIGLYCERIDES (test code = TRIG) 178 mg/dL 20-150 H CHOLESTEROL (test code = CHOL) 105 mg/dL 0-200 N CHOLESTEROL/HDL RATIO (test code = CHOLHDL) 2.0 RATIO 0-4.9 N RISK ASSOCIATED WITH CHOL/HDL RATIOS: Risk Male Female1/2 AVERAGE 3.43 3.27AVERAGE 4.97 4.442X AVERAGE 9.55 7.053X AVERAGE 23.39 11.04 REFERENCE VALUE IS RELATED TO RISK LEVELS ASRECOMMENDED BY THE ALEXSANDRA. HEART, LUNG, AND BLOOD INST. HDL CHOLESTEROL (test code = HDL) 39 mg/dL 40-60 L LIPOPROTEIN LDL (test code = LDL) 48 mg/dL 100-129 L Reference Interval: mg/dL mmol/L Optimal <100 <2.6Near/above optimal 100-129 2.6- 3.3Borderline High 130-159 3.4-4.1High 160-189 4.1-4.9Very High >=190 >=4.9========= This LDL result is a direct measurement.========= PROTHROMBIN [id number] 09:00:00* Test Item Value Reference Range Interpretation Comments PROTHROMBIN TIME PATIENT (test code = PTP) 12.4 seconds 9.0-14.0 N INTERNATIONAL NORMAL RATIO (test code = INR) 1.1 0.8-1.2 N The therapeutic range for oral anticoagulant therapy formost indications is an international normalized ratio (INR)of between 2.0 and 3.0. The recommended therapeutic INRrange for various clinical situations is listed below: Clinical Situation INR range Pulmonary e mbolism treatment (2.0-3.0)Venous thrombosis treatmentVenous thrombosis prophylaxis (high risk surgery)Prevention of systemic embolism from: Acute myocardial infarction Valvular heart disease Atrial fibrillation Mechanical prosthetic heart valves (2.5-3.5) IS PATIENT ON ANTICOAGULANTS? YLIST ANTICOAGULANTS ASPIRINTHROMBOPLASTIN TIME [id number] 09:00:00* Test Item Value Reference Range Interpretation Comments THROMBOPLASTIN TIME PARTIAL (test code = PTT) 35.7 seconds 25.0-36. 5 N IS PATIENT ON ANTICOAGULANTS? YLIST ANTICOAGULANTS ASPIRINBASIC METABOLIC [id number] 08:57:00* Test Item Value Reference Range Interpretation Comments SODIUM (test code = NA) 142 mmol/L 136-145 N POTASSIUM (test code = K) 3.8 mmol/L 3.5-5.1 N CHLORIDE (test code = CL) 112.0 mmol/L 98-107 H CARBON DIOXIDE (test code = CO2) mmol/L 21-32 ANION GAP (test code = GAP) 10-20 GLUCOSE (test code = GLU) mg/dL 74-106 BLOOD UREA NITROGEN (test code = BUN) mg/dL 7-18 GLOMERULAR FILTRATION RATE (test code = GFR) mL/min >=60 CREATININE (test code = CREAT) mg/dL 0.7-1.3 BUN/CREATININE RATIO (test code = BUN/CREA) 10-20 CALCIUM (test code = CA) mg/dL 8.5-10.1 LIPID PROFILE (CORONARY RISK)2019-04-03 08:57:00* Test Item Value Reference Range Interpretation Comments TRIGLYCERIDES (test code = TRIG) mg/dL 20-150 CHOLESTEROL (test code = CHOL) mg/dL 0-200 CHOLESTEROL/HDL RATIO (test code = CHOLHDL) RATIO 0-4.9 HDL CHOLESTEROL (test code = HDL) mg/dL 40-60 LIPOPROTEIN LDL (test code = LDL) mg/dL 100-129 CBC W/AUTO [id number] 08:54:00* Test Item Value Reference Range Interpretation Comments WHITE BLOOD CELL (test code = WBC) 11.3 K/mm3 4.5-12.5 N RED BLOOD CELL (test code = RBC) 5.21 mill/mm3 4.0-5.8 N HEMOGLOBIN (test code = HGB) 15.9 gram/dL 13.0-17.5 N HEMATOCRIT (test code = HCT) 49.6 % 42.0-52.0 N MEAN CELL VOLUME (test code = MCV) 95.2 fL 80-98 N MEAN CELL HGB (test code = MCH) 30.5 picogram 27.0-33.0 N MEAN CELL HGB CONCETRATION (test code = MCHC) 32.1 gram/dL 33.0-36. 0 L RED CELL DISTRIBUTION WIDTH (test code = RDW) 12.3 % 11.6-16. 2 N RED CELL DISTRIBUTION WIDTH SD (test code = RDW-SD) 42.9 fL 37 .0-51.0 N PLATELET COUNT (test code = PLT) 208 K/mm3 150-450 N MEAN PLATELET VOLUME (test code = MPV) 10.0 fL 6.7-11.0 N NEUTROPHIL % (test code = NT%) 72.2 % 39.0-69.0 H IMMATURE GRANULOCYTE % (test code = IG%) 0.4 % 0.0-5.0 N LYMPHOCYTE % (test code = LY%) 16.9 % 25.0-55.0 L MONOCYTE % (test code = MO%) 7.7 % 0.0-10.0 N EOSINOPHIL % (test code = EO%) 2.4 % 0.0-5.0 N BASOPHIL % (test code = BA%) 0.4 % 0.0-1.0 N NUCLEATED RBC % (test code = NRBC%) 0.0 % 0-0 N NEUTROPHIL # (test code = NT#) 8.18 K/mm3 1.8-7.7 H IMMATURE GRANULOCYTE # (test code = IG#) 0.04 x10 3/uL 0-0.03 H LYMPHOCYTE # (test code = LY#) 1.91 K/mm3 1.0-5.0 N MONOCYTE # (test code = MO#) 0.87 K/mm3 0-0.8 H EOSINOPHIL # (test code = EO#) 0.27 K/mm3 0.0-0.5 N BASOPHIL # (test code = BA#) 0.05 K/mm3 0.0-0.2 N NUCLEATED RBC # (test code = NRBC#) 0.00 K/mm3 0.0-0.1 N CBC W/AUTO [id number] 08:50:00* Test Item Value Reference Range Interpretation Comments WHITE BLOOD CELL (test code = WBC) K/mm3 4.5-12.5 RED BLOOD CELL (test code = RBC) mill/mm3 4.0-5.8 HEMOGLOBIN (test code = HGB) 15.9 gram/dL 13.0-17.5 N HEMATOCRIT (test code = HCT) 49.6 % 42.0-52.0 N MEAN CELL VOLUME (test code = MCV) fL 80-98 MEAN CELL HGB (test code = MCH) picogram 27.0-33.0 MEAN CELL HGB CONCETRATION (test code = MCHC) gram/dL 33.0-36. 0 RED CELL DISTRIBUTION WIDTH (test code = RDW) % 11.6-16. 2 RED CELL DISTRIBUTION WIDTH SD (test code = RDW-SD) fL 37 .0-51.0 PLATELET COUNT (test code = PLT) K/mm3 150-450 MEAN PLATELET VOLUME (test code = MPV) fL 6.7-11.0 NEUTROPHIL % (test code = NT%) % 39.0-69.0 IMMATURE GRANULOCYTE % (test code = IG%) % 0.0-5.0 LYMPHOCYTE % (test code = LY%) % 25.0-55.0 MONOCYTE % (test code = MO%) % 0.0-10.0 EOSINOPHIL % (test code = EO%) % 0.0-5.0 BASOPHIL % (test code = BA%) % 0.0-1.0 NEUTROPHIL # (test code = NT#) K/mm3 1.8-7.7 LYMPHOCYTE # (test code = LY#) K/mm3 1.0-5.0 MONOCYTE # (test code = MO#) K/mm3 0-0.8 EOSINOPHIL # (test code = EO#) K/mm3 0.0-0.5 BASOPHIL # (test code = BA#) K/mm3 0.0-0.2 [id number] 19:59:00* Test Item Value Reference Range Interpretation Comments GLUBED (test code = GLUBED) 153 mg/dL 74-106 H Performed by certified clasp machine operator at [facility] [id number] 16:28:00* Test Item Value Reference Range Interpretation Comments GLUBED (test code = GLUBED) 165 mg/dL 74-106 H Performed by certified clasp machine operator at [facility] [id number] 11:10:00* Test Item Value Reference Range Interpretation Comments GLUBED (test code = GLUBED) 188 mg/dL 74-106 H Performed by certified clasp machine operator at [facility] [id number] 07:46:00* Test Item Value Reference Range Interpretation Comments GLUBED (test code = GLUBED) 108 mg/dL 74-106 H Performed by certified clasp machine operator at [facility] [id number] 05:05:00* Test Item Value Reference Range Interpretation Comments TROPONIN-I (test code = TROPI) <0.015 ng/mL 0-0.045 N COMMENTS TO [place]: COLLECT 3 HOURS AFTER PREVIOUS [id number] 02:22:00* Test Item Value Reference Range Interpretation Comments TROPONIN-I (test code = TROPI) <0.015 ng/mL 0-0.045 N COMMENTS TO [place]: COLLECT 3 HOURS AFTER PREVIOUS SAMPLEBASIC METABOLIC [id number] 20:55:00* Test Item Value Reference Range Interpretation Comments SODIUM (test code = NA) 144 mmol/L 136-145 N POTASSIUM (test code = K) 3.7 mmol/L 3.5-5.1 N CHLORIDE (test code = CL) 113.0 mmol/L 98-107 H CARBON DIOXIDE (test code = CO2) 25.0 mmol/L 21-32 N ANION GAP (test code = GAP) 9.7 10-20 L GLUCOSE (test code = GLU) 81 mg/dL 74-106 N BLOOD UREA NITROGEN (test code = BUN) 7 mg/dL 7-18 N GLOMERULAR FILTRATION RATE (test code = GFR) > 60 mL/min >=60 Estimated GFR by using Modified MDRD formula.Chronic kidney disease is defined as either kidney damageor GFR <60 mL/min/1.73 m2 for >3 months. CREATININE (test code = CREAT) 0.90 mg/dL 0.7-1.3 N BUN/CREATININE RATIO (test code = BUN/CREA) 7.8 10-20 L CALCIUM (test code = CA) 9.2 mg/dL 8.5-10.1 N [id number] 20:55:00* Test Item Value Reference Range Interpretation Comments TROPONIN-I (test code = TROPI) <0.015 ng/mL 0-0.045 N BASIC METABOLIC [id number] 20:41:00* Test Item Value Reference Range Interpretation Comments SODIUM (test code = NA) 144 mmol/L 136-145 N POTASSIUM (test code = K) 3.7 mmol/L 3.5-5.1 N CHLORIDE (test code = CL) 113.0 mmol/L 98-107 H CARBON DIOXIDE (test code = CO2) mmol/L 21-32 ANION GAP (test code = GAP) 10-20 GLUCOSE (test code = GLU) mg/dL 74-106 BLOOD UREA NITROGEN (test code = BUN) mg/dL 7-18 GLOMERULAR FILTRATION RATE (test code = GFR) mL/min >=60 CREATININE (test code = CREAT) mg/dL 0.7-1.3 BUN/CREATININE RATIO (test code = BUN/CREA) 10-20 CALCIUM (test code = CA) mg/dL 8.5-10.1 [id number] 20:41:00* Test Item Value Reference Range Interpretation Comments TROPONIN-I (test code = TROPI) ng/mL 0-0.045 [id number] 20:37:00* Test Item Value Reference Range Interpretation Comments D-DIMER (test code = DDIMER) 208.00 ng/mLFEU 0-500 N Clinical Cut-off value for D-Dimer is 500 ng/mL FEU. Comment: The [employer] D-Dimer assay is intended for use asan aid in the diagnosis of venous thromboembolism (VTE)[deep vein thrombosis (DVT) or pulmonary embolism (PE)].The measurement of D-Dimer should not be used as an aid inthe diagnosis of VTE, in patient with: -Therapeutic dose anticoagulant therapy for >24 hours -Fibrinolytic therapy within previous 7 days -Trauma or surgery within previous 4 weeks -Disseminated malignancies -Aortic aneurysm -Sepsis, severe infections, pneumonia, severe skin infections -Liver cirrhosis - CBC W/O [id number] 20:19:00* Test Item Value Reference Range Interpretation Comments WHITE BLOOD CELL (test code = WBC) 14.2 K/mm3 4.5-12.5 H RED BLOOD CELL (test code = RBC) 4.88 mill/mm3 4.0-5.8 N HEMOGLOBIN (test code = HGB) 14.9 gram/dL 13.0-17.5 N HEMATOCRIT (test code = HCT) 45.1 % 42.0-52.0 N MEAN CELL VOLUME (test code = MCV) 92.4 fL 80-98 N MEAN CELL HGB (test code = MCH) 30.5 picogram 27.0-33.0 N MEAN CELL HGB CONCETRATION (test code = MCHC) 33.0 gram/dL 33.0-36. 0 N RED CELL DISTRIBUTION WIDTH (test code = RDW) 12.3 % 11.6-16. 2 N PLATELET COUNT (test code = PLT) 216 K/mm3 150-450 N MEAN PLATELET VOLUME (test code = MPV) 10.2 fL 6.7-11.0 N TROPONIN I [id number] 20:17:00* Test Item Value Reference Range Interpretation Comments TROPONIN I RAPID (test code = TROPIRAP) 0.00 ng/mL <0.08 Please Note New Reference Range 0.00-0.079 ng/mL - Negative>or= 0.08 ng/mL - Positive The use of serial sampling and testing protocol is arecommended practice.An elevated troponin level alone is often not sufficient fordiagnosis of myocardial infarction. Troponin results obtained by different assays may vary.Evaluation of the extent of myocardial damage based onincrease of troponin would be valid only if similarmethodology is used. - XR CHEST 1 [id number] 19:48:00 FAX: Tae Levy MD [phone] [place]: St: PRE FAX: Y Luis Eduardo Campos MD [phone] Name: CRISPIN TOMLIN [facility] : 1960 Age/S: 59/M [address] [facility] Unit #: [id number] Loc: [place] [address] Phys: Tae Levy MD Acct: [id number] Dis Date: Status: PRE ER PHONE #: [phone] Exam Date: 04/01/20191928 FAX #: [phone] Reason: CHEST PAIN EXAMS: CPT CODE: [id number] XR CHEST 1 V [id number] REASON FOR EXAM: CHEST PAIN Exam Order Date: 04/01/2019 7:19 PM Ordering M.D.: Tae Levy MD PROCEDURE: - XR CHEST 1 V COMPARISON: AP chest x-ray January 20, 2018 FINDINGS: The lungs are clear. There is no pleural effusion or pneumothorax. Pulmonary vascularity is within normal limits. Cardiomediastinal silhouette is normal in size for technique. The mediastinal contours are within normal limits. Left subclavian ICD is un changed with the leads terminating in the region of the right ventricle. Musculoskeletal structures are within normal limits. The visualized upper abdomen is poorly evaluated due to patient body habit us. IMPRESSION: No acute cardiopulmonary process. at 1946 Reported and signed by: Jorge Donohue MD CC: Tae Levy MD; Luis Eduardo Campos MD Technologist: IBETH GOTTI; Prakash Saleh, RT(R Trnscrd Date/Time/By: 04/01/2019 (1945) : By: Yamilet [id number] Orig Print D/T: S: 04/01/2019 (1949) [facility] 1 Signed Report GLUBED 2018-12-27 12:48:00* Test Item Value Reference Range Interpretation Comments GLUBED (test code = GLUBED) 190 mg/dL 74-106 H Performed by certified clasp machine operator at [facility] [id number] 08:50:00* Test Item Value Reference Range Interpretation Comments GLUBED (test code = GLUBED) 134 mg/dL 74-106 H Performed by certified clasp machine operator at [facility] [id number] 20:49:00* Test Item Value Reference Range Interpretation Comments GLUBED (test code = GLUBED) 140 mg/dL 74-106 H Performed by certified clasp machine operator at [facility] [id number] 16:54:00* Test Item Value Reference Range Interpretation Comments GLUBED (test code = GLUBED) 170 mg/dL 74-106 H Performed by certified clasp machine operator at [facility] [id number] 13:10:00* Test Item Value Reference Range Interpretation Comments GLUBED (test code = GLUBED) 169 mg/dL 74-106 H Performed by certified clasp machine operator at [facility] [id number] 09:24:00* Test Item Value Reference Range Interpretation Comments GLUBED (test code = GLUBED) 163 mg/dL 74-106 H Performed by certified clasp machine operator at [facility] [id number] 20:54:00* Test Item Value Reference Range Interpretation Comments GLUBED (test code = GLUBED) 172 mg/dL 74-106 H Performed by certified clasp machine operator at [facility] [id number] 17:27:00* Test Item Value Reference Range Interpretation Comments GLUBED (test code = GLUBED) 119 mg/dL 74-106 H Performed by certified clasp machine operator at [facility] [id number] 13:47:00 RUN DATE: 12/25/18 [facility] PAGE 1 RUN TIME: 1347 Specimen Inqui ry RUN USER: INTERFACE PATIENT: CRISPIN TOMLIN ACCT #: [id number] LOC: [place] U #: [id number] AGE/SX: 58/M ROOM: [facility] RE12/24/18REG DR: Joes Holt MD : 64 BED: A DIS: STATUS: ADM IN TLOC: SPEC #: [id number] RECD: 12/24/18 STATUS: SALTY MICHAEL #: [id number] LESLIE: 12/24/18- [facility] DR: Debora Fagan MD ENTERED: 12/24/18 SP TYPE: OMENT OTHR DR: Luis Eduardo Campos MD ORDERED: GROSS COPIES TO: Debora Fagan MD [address] [place] [address] Luis Eduardo Campos MD [address] [facility] [place] [address] PROCEDURES: GROSS (12/25/18-1133) TI SSUES: OMENTUM, NOS CLINICAL HISTORY COLLECTION DATE: 12/24 STRANGULATED UMBILICAL HERNIA FINAL DIAGNOSIS Omentum, re pair of strangulated umbilical hernia with partial omentectomy: OMENTAL A DIPOSE TISSUE WITH ORGANIZING AREAS OF HEMORRHAGE NEGATIVE FOR MALIGNANCY DMW/sm D 92541 MACROSCOPIC The specimen is received in formalin, labeled with the patient's name, identified as "omentum", and con sists of multiple portions of omentum measuring 11 x 9 x 2.5 cm in aggregate. Serial sectioning reveals a paige-yellow, soft cut surface. There is a 2.5 cm paige-red area, most likely representing previous hemorrhage. There is also a p ortion of membranous tissue measuring 7.0 x 1.0 cm. [place] [employer] sections a re submitted in a single cassette. CONTINUED ON NEXT PAGE RUN DATE: 12/25/18 [facility] PAGE 2 RUN TIME: 1347 Specimen Inquiry RUN USER: INTERFACE SPEC #: [id number] TRAVISE NT: CRISPIN TOMLIN #[id number] (Continued) MACROSCOPIC (Continued) GROSS PERFORMED AT [facility] [address] [facility] [place] [address] (P) [phone] MICROSCOPIC MICROSCOPIC PERFORMED AT [employer] All of the stains, including any controls performed, stain appropriate ly. [facility] [address] [place] [address] [phone] PERFORMING SITE Diagnosis performed at: [facility], [place] [address] [place] [address] Signed SIGNATURE ON FILE Beth Huitron MD 12/25/18 1347 END OF REPORT [id number] 12:25:00* Test Item Value Reference Range Interpretation Comments GLUBED (test code = GLUBED) 219 mg/dL 74-106 H Performed by certified clasp machine operator at [facility] [id number] 11:22:00* Test Item Value Reference Range Interpretation Comments GLUBED (test code = GLUBED) 135 mg/dL 74-106 H Performed by certified clasp machine operator at [facility] BASIC METABOLIC [id number] 10:01:00* Test Item Value Reference Range Interpretation Comments SODIUM (test code = NA) 142 mmol/L 136-145 N POTASSIUM (test code = K) 4.1 mmol/L 3.5-5.1 N CHLORIDE (test code = CL) 109.0 mmol/L 98-107 H CARBON DIOXIDE (test code = CO2) 28.0 mmol/L 21-32 N ANION GAP (test code = GAP) 9.1 10-20 L GLUCOSE (test code = GLU) 131 mg/dL 74-106 H BLOOD UREA NITROGEN (test code = BUN) 10 mg/dL 7-18 N GLOMERULAR FILTRATION RATE (test code = GFR) > 60 mL/min >=60 Estimated GFR by using Modified MDRD formula.Chronic kidney disease is defined as either kidney damageor GFR <60 mL/min/1.73 m2 for >3 months. CREATININE (test code = CREAT) 0.90 mg/dL 0.7-1.3 N BUN/CREATININE RATIO (test code = BUN/CREA) 11.7 10-20 N CALCIUM (test code = CA) 8.7 mg/dL 8.5-10.1 N BASIC METABOLIC [id number] 09:44:00* Test Item Value Reference Range Interpretation Comments SODIUM (test code = NA) 142 mmol/L 136-145 N POTASSIUM (test code = K) 4.1 mmol/L 3.5-5.1 N CHLORIDE (test code = CL) 109.0 mmol/L 98-107 H CARBON DIOXIDE (test code = CO2) mmol/L 21-32 ANION GAP (test code = GAP) 10-20 GLUCOSE (test code = GLU) mg/dL 74-106 BLOOD UREA NITROGEN (test code = BUN) mg/dL 7-18 GLOMERULAR FILTRATION RATE (test code = GFR) mL/min >=60 CREATININE (test code = CREAT) mg/dL 0.7-1.3 BUN/CREATININE RATIO (test code = BUN/CREA) 10-20 CALCIUM (test code = CA) mg/dL 8.5-10.1 CBC W/AUTO [id number] 09:18:00* Test Item Value Reference Range Interpretation Comments WHITE BLOOD CELL (test code = WBC) 12.8 K/mm3 4.5-12.5 H RED BLOOD CELL (test code = RBC) 4.87 mill/mm3 4.0-5.8 N HEMOGLOBIN (test code = HGB) 15.3 gram/dL 13.0-17.5 N HEMATOCRIT (test code = HCT) 47.5 % 42.0-52.0 N MEAN CELL VOLUME (test code = MCV) 97.5 fL 80-98 N MEAN CELL HGB (test code = MCH) 31.4 picogram 27.0-33.0 N MEAN CELL HGB CONCETRATION (test code = MCHC) 32.2 gram/dL 33.0-36. 0 L RED CELL DISTRIBUTION WIDTH (test code = RDW) 12.9 % 11.6-16. 2 N RED CELL DISTRIBUTION WIDTH SD (test code = RDW-SD) 46.0 fL 37 .0-51.0 N PLATELET COUNT (test code = PLT) 214 K/mm3 150-450 N MEAN PLATELET VOLUME (test code = MPV) 10.1 fL 6.7-11.0 N NEUTROPHIL % (test code = NT%) 76.2 % 39.0-69.0 H IMMATURE GRANULOCYTE % (test code = IG%) 0.5 % 0.0-5.0 N LYMPHOCYTE % (test code = LY%) 11.9 % 25.0-55.0 L MONOCYTE % (test code = MO%) 10.3 % 0.0-10.0 H EOSINOPHIL % (test code = EO%) 0.9 % 0.0-5.0 N BASOPHIL % (test code = BA%) 0.2 % 0.0-1.0 N NUCLEATED RBC % (test code = NRBC%) 0.0 % 0-0 N NEUTROPHIL # (test code = NT#) 9.75 K/mm3 1.8-7.7 H IMMATURE GRANULOCYTE # (test code = IG#) 0.06 x10 3/uL 0-0.03 H LYMPHOCYTE # (test code = LY#) 1.52 K/mm3 1.0-5.0 N MONOCYTE # (test code = MO#) 1.32 K/mm3 0-0.8 H EOSINOPHIL # (test code = EO#) 0.12 K/mm3 0.0-0.5 N BASOPHIL # (test code = BA#) 0.03 K/mm3 0.0-0.2 N NUCLEATED RBC # (test code = NRBC#) 0.00 K/mm3 0.0-0.1 N MANUAL DIFF REQUIRED (test code = MDIFF) NO [id number] 05:33:00* Test Item Value Reference Range Interpretation Comments GLUBED (test code = GLUBED) 148 mg/dL 74-106 H Performed by certified clasp machine operator at [facility] [id number] 21:15:00* Test Item Value Reference Range Interpretation Comments GLUBED (test code = GLUBED) 97 mg/dL 74-106 N Performed by certified clasp machine operator at [facility] [id number] 16:44:00* Test Item Value Reference Range Interpretation Comments GLUBED (test code = GLUBED) 196 mg/dL 74-106 H Performed by certified clasp machine operator at [facility] [id number] 06:20:00* Test Item Value Reference Range Interpretation Comments GLUBED (test code = GLUBED) 118 mg/dL 74-106 H Performed by certified clasp machine operator at [facility] URINALYSIS [id number] 20:05:00* Test Item Value Reference Range Interpretation Comments UA COLOR (test code = COLU) LIGHT YELLOW YELLOW UA APPEARANCE (test code = APPU) CLEAR CLEAR UA GLUCOSE DIPSTICK (test code = DGLUU) NEGATIVE mg/dL NEGATIVE UA BILIRUBIN DIPSTICK (test code = BILU) NEGATIVE mg/dL NEGATIVE UA KETONE DIPSTICK (test code = KETU) Negative mg/dL NEGATIVE UA SPECIFIC GRAVITY (test code = SGU) 1.015 1.001-1.035 UA BLOOD DIPSTICK (test code = TRAVIS) Negative NEGATIVE UA PH DIPSTICK (test code = KIP) 7.0 5.0-8.0 UA PROTEIN DIPSTICK (test code = PROU) Negative mg/dL NEGATIVE UA UROBILINIOGEN DIPSTICK (test code = URO) 1 mg/dL (1+) mg/dL 0.0 -0.2 UA NITRITE DIPSTICK (test code = KASEY) NEGATIVE NEGATIVE UA LEUKOCYTE ESTERASE W REFLEX (test code = LEUUR) NEGATIVE NEG ATIVE UA WBC (test code = WBCU) 0-5 #/HPF 0-5 UA RBC (test code = RBCU) 0-2 #/HPF 0-5 UA EPITHELIAL CELLS (test code = EPIU) FEW per HPF FEW UA BACTERIA (test code = BACU) NONE SEEN #/HPF NONE Urine Source? Clean Catch- CT ABD PELVIS [id number] 19:55:00 Name: CRISPIN TOMLIN [facility] : 1960 Age/S: 58 / M [address] Unit #: [id number] Loc: [place] [address] Phys: Silvia Yeager MD Acct: [id number] Di s Date: Status: REG ER PHONE #: [phone] Exam Date: 12/23/20181919 FAX #: Reason: Concern for strangulated hernia/melena EXAMS: CPT CODE: [id number] CT ABD PELVIS W/CONT 02062 EXAM: CT of the abdomen a nd pelvis with contrast; INFORMATION: Concern for strangulated her shraddha; TECHNIQUE AND FINDINGS: CT dose reduction protocol; 5 mm cuts through the abdomen and pelvis during and after intravenous i nfusion of contrast material. There is a fat-containing periumbilical balbir ia with a moderately wide base. The hernia sac measures 6.5 cm in maximum diameter. It does not contain bowel loops. However there is patchy stra nding of fat tissue which could be due to ischemic changes. There ar e no acute bowel abnormalities. Liver, biliary system, pancreas, spleen, a drenal glands and kidneys are unremarkable. No pelvic mass lesions. Prostate calcifications. Calcifications of the abdominal aorta and i liac arteries. Scans through the lung bases show subtle patchy densities l aterally in the left lower lobe. IMPRESSION: 1. F at-containing periumbilical hernia. No herniated bowel loops but strand ing of the herniated fat raises the suspicion of ischemic or potentially inflammatory changes. 2. No other significant abdominal or pelvic abno rmalities. 3. Subtle patchy densities in the left lower lobe probably r epresent atelectatic changes but could also represent an early infiltrat e. at 5 Repo rted and signed by: Jona Laguerre M.D. CC: Eber Yeager MD; Luis Eduardo Campos MD Technologist:Chad Orellana RT(R)(CT) CTDI: DLP: Trnscb Date/Time: 12/23/2018 (1954) Anurag.GRW Orig Print D/T: S: 12/23/2018 (1955) CTDI: DLP: PAGE 1 Signed Report BASIC METABOLIC [id number] 18:58:00* Test Item Value Reference Range Interpretation Comments SODIUM (test code = NA) 140 mmol/L 136-145 N POTASSIUM (test code = K) 4.1 mmol/L 3.5-5.1 N CHLORIDE (test code = CL) 108.0 mmol/L 98-107 H CARBON DIOXIDE (test code = CO2) 26.0 mmol/L 21-32 N ANION GAP (test code = GAP) 10.1 10-20 N GLUCOSE (test code = GLU) 127 mg/dL 74-106 H BLOOD UREA NITROGEN (test code = BUN) 11 mg/dL 7-18 N GLOMERULAR FILTRATION RATE (test code = GFR) > 60 mL/min >=60 Estimated GFR by using Modified MDRD formula.Chronic kidney disease is defined as either kidney damageor GFR <60 mL/min/1.73 m2 for >3 months. CREATININE (test code = CREAT) 0.80 mg/dL 0.7-1.3 N BUN/CREATININE RATIO (test code = BUN/CREA) 13.8 10-20 N CALCIUM (test code = CA) 9.2 mg/dL 8.5-10.1 N HEPATIC FUNCTION [id number] 18:58:00* Test Item Value Reference Range Interpretation Comments TOTAL PROTEIN (test code = PROT) 7.5 gram/dL 6.4-8.2 N ALBUMIN (test code = ALB) 3.5 g/dL 3.4-5.0 N GLOBULIN (test code = GLOB) 4.0 gram/dL 2.7-4.2 N ALBUMIN/GLOBULIN RATIO (test code = A/G) 0.9 0.75-1.50 N BILIRUBIN TOTAL (test code = BILT) 0.40 mg/dL 0.0-1.0 N BILIRUBIN DIRECT (test code = BILD) 0.12 mg/dL 0.0-0.20 N SGOT/AST (test code = AST) 10 IUnit/L 15-37 L SGPT/ALT (test code = ALT) 20 IUnit/L 12-78 N ALKALINE PHOSPHATASE TOTAL (test code = ALKP) 72 IUnit/L 45-117 N Note change in reference range due to change in reagent. [id number] 18:58:00* Test Item Value Reference Range Interpretation Comments LIPASE (test code = LIP) 85 U/L 73.0-393.0 N CBC W/O [id number] 18:52:00* Test Item Value Reference Range Interpretation Comments WHITE BLOOD CELL (test code = WBC) 12.8 K/mm3 4.5-12.5 H RED BLOOD CELL (test code = RBC) 5.22 mill/mm3 4.0-5.8 N HEMOGLOBIN (test code = HGB) 16.4 gram/dL 13.0-17.5 N HEMATOCRIT (test code = HCT) 50.4 % 42.0-52.0 N MEAN CELL VOLUME (test code = MCV) 96.6 fL 80-98 N MEAN CELL HGB (test code = MCH) 31.4 picogram 27.0-33.0 N MEAN CELL HGB CONCETRATION (test code = MCHC) 32.5 gram/dL 33.0-36. 0 L RED CELL DISTRIBUTION WIDTH (test code = RDW) 12.5 % 11.6-16. 2 N PLATELET COUNT (test code = PLT) 234 K/mm3 150-450 N MEAN PLATELET VOLUME (test code = MPV) 10.5 fL 6.7-11.0 N CBC W/O [id number] 18:51:00* Test Item Value Reference Range Interpretation Comments WHITE BLOOD CELL (test code = WBC) K/mm3 4.5-12.5 RED BLOOD CELL (test code = RBC) mill/mm3 4.0-5.8 HEMOGLOBIN (test code = HGB) 16.4 gram/dL 13.0-17.5 N HEMATOCRIT (test code = HCT) 50.4 % 42.0-52.0 N MEAN CELL VOLUME (test code = MCV) fL 80-98 MEAN CELL HGB (test code = MCH) picogram 27.0-33.0 MEAN CELL HGB CONCETRATION (test code = MCHC) gram/dL 33.0-36. 0 RED CELL DISTRIBUTION WIDTH (test code = RDW) % 11.6-16. 2 PLATELET COUNT (test code = PLT) K/mm3 150-450 MEAN PLATELET VOLUME (test code = MPV) fL 6.7-11.0 BASIC METABOLIC [id number] 18:48:00* Test Item Value Reference Range Interpretation Comments SODIUM (test code = NA) 140 mmol/L 136-145 N POTASSIUM (test code = K) 4.1 mmol/L 3.5-5.1 N CHLORIDE (test code = CL) 108.0 mmol/L 98-107 H CARBON DIOXIDE (test code = CO2) mmol/L 21-32 ANION GAP (test code = GAP) 10-20 GLUCOSE (test code = GLU) mg/dL 74-106 BLOOD UREA NITROGEN (test code = BUN) mg/dL 7-18 GLOMERULAR FILTRATION RATE (test code = GFR) mL/min >=60 CREATININE (test code = CREAT) mg/dL 0.7-1.3 BUN/CREATININE RATIO (test code = BUN/CREA) 10-20 CALCIUM (test code = CA) mg/dL 8.5-10.1 HEPATIC FUNCTION [id number] 18:48:00* Test Item Value Reference Range Interpretation Comments TOTAL PROTEIN (test code = PROT) gram/dL 6.4-8.2 ALBUMIN (test code = ALB) g/dL 3.4-5.0 GLOBULIN (test code = GLOB) gram/dL 2.7-4.2 ALBUMIN/GLOBULIN RATIO (test code = A/G) 0.75-1.50 BILIRUBIN TOTAL (test code = BILT) mg/dL 0.0-1.0 BILIRUBIN DIRECT (test code = BILD) mg/dL 0.0-0.20 SGOT/AST (test code = AST) IUnit/L 15-37 SGPT/ALT (test code = ALT) IUnit/L 12-78 ALKALINE PHOSPHATASE TOTAL (test code = ALKP) IUnit/L 45-117 [id number] 18:48:00* Test Item Value Reference Range Interpretation Comments LIPASE (test code = LIP) U/L 73.0-393.0 ABDOMEN-1VIEW (KUB)2018-07-30 10:02:00 [place] [address] Patient Name: CRISPIN TOMLIN MR #: [id number] : 1960 Age/Sex: 58/M Req #: [id number] Adm Physician: Ordered by: IRENE MACE MD Report #: [id number] [facility]: [facility] Room/Bed: Procedure: [id number] DX/ABDOMEN-1VIEW (KUB) Exam Da te: Exam Time: REPORT STATUS: Signed PROCE DURE: X-RAY ABDOMEN - KUB COMPARISON: None. INDICATIONS: URETE RAL CALCULUS FINDINGS: Left internal ureteral stent, positioned with the proximal locking loop over the expected region of the renal pelvis and th e distal locking loop over the expected region of the urinary bladder to the left of midline. No suspicious calcifications project over the renal shadows or ureteral courses. Bowel gas pattern is nonobstructive. Regional skeleta l structures are intact. CONCLUSION: Appropriately positioned lef t internal ureteral stent without plain film evidence of urolithiasis. Dic tated by: Debora Sanders M.D. on 07/30/2018 at 10:02 Electronically approve d by: Debora Sanders M.D. on 07/30/2018 at 10:02 Dictated By: DEBORA SANDERS MD 1002 Transc ribed By: DAKOTA on 07/30/18 1002 COPY TO: IRENE MACE MD
== END 2020-06-16 20:43 | disposition home or self-care (01) ==
LOC: ER 17:13
DX: R10.13 Epigastric pain (principal); K29.70 Gastritis, unspecified, without bleeding; I10 Essential (primary) hypertension; E11.9 Type 2 diabetes mellitus without complications; I50.9 Heart failure, unspecified; I25.10 Atherosclerotic heart disease of native coronary artery without angina pectoris; E78.5 Hyperlipidemia, unspecified; K21.9 Gastro-esophageal reflux disease without esophagitis; F41.9 Anxiety disorder, unspecified; I25.2 Old myocardial infarction; Z95.810 Presence of automatic (implantable) cardiac defibrillator; Z95.5 Presence of coronary angioplasty implant and graft
CPT/HCPCS: 36415; 74019; 76705; 80053; 81001; 82150; 83690; 84484; 85025; 93005; 99283; J2405; J3010

== ENCOUNTER 2020-07-06 20:11 | Inpatient (IN) | payer MEDICARE, OTHER ==
[~2020-07-06] VITALS: Ht 172.7 cm; Wt 113.4 kg
[2020-07-06] MEDS ORDERED: CEFTRIAXONE SOD 1 GM/NS 50 ML 50 ML IV ONE (20:30)
[2020-07-06 20:45] LABS: BASOPHILS # (AUTO) 0.1 (0.0-0.1); BASOPHILS % 0.7 % (0.0-1.0); EOSINOPHILS # (AUTO) 0.3 (0.0-0.4); EOSINOPHILS % 2.2 % (0.0-6.0); HEMATOCRIT 51.9 % (38.2-49.6); HEMOGLOBIN 16.5 g/dL (14.0-18.0); LYMPHOCYTES # (AUTO) 2.2 (1.0-3.2); LYMPHOCYTES % 19.6 % (18.0-39.1); MEAN CORPUSCULAR HEMOGLOBIN 30.1 pg (28-32); MEAN CORPUSCULAR HGB CONC 31.8 g/dL (31-35); MEAN CORPUSCULAR VOLUME 94.5 fL (81-99); MONOCYTES # (AUTO) 0.8 (0.2-0.8); MONOCYTES % 6.6 % (4.4-11.3); NEUTROPHILS % 70.4 % (38.7-80.0); PLATELET COUNT 295 x10e3/uL (140-360); RED BLOOD COUNT 5.49 x10e6/uL (4.3-5.7)
[2020-07-06 21:04] LABS: ALANINE AMINOTRANSFERASE 48 IU/L (0-55); ALBUMIN 4.3 g/dL (3.5-5.0); ALBUMIN/GLOBULIN RATIO 1.4 (0.8-2.0); ALKALINE PHOSPHATASE 83 IU/L (40-150); ANION GAP 21.2 mmol/L (8-16); BLOOD UREA NITROGEN 14 mg/dL (7-26); BUN/CREATININE RATIO 17 (6-25); CALCIUM 9.1 mg/dL (8.4-10.2); CARBON DIOXIDE 18 mmol/L (22-29); CHLORIDE 108 mmol/L (98-107); CREATINE KINASE 45 IU/L (30-200); CREATININE, SERUM 0.84 mg/dL (0.72-1.25); EST GLOMERULAR FILTRATION RATE > 60 ML/MIN (60-); GLUCOSE 165 mg/dL (74-118); POTASSIUM 4.2 mmol/L (3.5-5.1); SODIUM 143 mmol/L (136-145)
[2020-07-06] MEDS ORDERED: ONDANSETRON HCL INJ 2MG/ML 2ML 2 MG/ML VIAL IV STA (21:13)
[2020-07-06 21:14] LABS: B-TYPE NATRIURETIC PEPTIDE2 < 10.0 pg/mL (0-100)
[2020-07-06] MEDS ORDERED: SODIUM CHLORIDE 0.9% 500ML 500 ML IV ONE (21:15)
[2020-07-06] MEDS ORDERED: ACETAMINOPHEN/CODEINE 300MG - 30MG TAB PO ONE (21:30)
[2020-07-06] MEDS ORDERED: LORAZEPAM INJ 2 MG/ML VIAL IV ONE (22:00)
[2020-07-06] MEDS ORDERED: IOPAMIDOL 370 MG/ML 200 ML INFUS..BTL INJ ONE (22:03)
[2020-07-06] MEDS ORDERED: SODIUM CHLORIDE 0.9% 50ML 50 ML ONE (22:03)
[2020-07-06] MEDS ORDERED: DEXTROSE 50% SYRINGE 50 ML IV PRN (23:00)
[2020-07-06] MEDS ORDERED: SODIUM CHLORIDE 0.9% 1000ML 1,000 ML IV ONE (23:00)
[2020-07-06] MEDS: AZITHROMYCIN 500MG/NS 250 ML 250 ML IV ONE ×2 (23:00→23:20)
[2020-07-06] MEDS ORDERED: ACETAMINOPHEN 325 MG TAB PO PRN (23:00)
[2020-07-06] MEDS: AZITHROMYCIN 500MG/SOD CHL 0.9% 250ML BAG IV SCH (23:20)
[2020-07-06] MEDS: CEFTRIAXONE SOD 1 GRAM/0.9% SOD CHL 50ML BAG IV SCH (23:21)
[2020-07-07] VITALS (8 sets, daily range): BP systolic 88–133; BP diastolic 59–98
[2020-07-07] MEDS ORDERED: HYDROCODONE/APAP 5MG-325MG TAB PO PRN (00:30)
[2020-07-07] MEDS ORDERED: PROTONIX20 MG PO (02:36)
[2020-07-07] MEDS ORDERED: ZOFRAN8 MG PO (02:36)
[2020-07-07] MEDS ORDERED: GLIPIZIDE10 MG PO (02:36)
[2020-07-07] MEDS ORDERED: FUROSEMIDE40 MG PO (02:36)
[2020-07-07] MEDS ORDERED: ZETIA10 MG PO (02:36)
[2020-07-07] MEDS ORDERED: ISOSORBIDE MONO20 MG PO (02:36)
[2020-07-07] MEDS ORDERED: METOPROLOL SUCC50 MG PO (02:36)
[2020-07-07] MEDS ORDERED: BUSPIRONE HCL5 MG PO (02:36)
[2020-07-07] MEDS ORDERED: CLOPIDOGREL75 MG PO (02:36)
[2020-07-07] MEDS ORDERED: METFORMIN HCL500 M2 PO (02:36)
[2020-07-07] MEDS ORDERED: ATORVASTATIN CA20 MG PO (02:36)
[2020-07-07] MEDS ORDERED: METHOCARBAMOL750 MG PO (02:36)
[2020-07-07] MEDS ORDERED: SUCRALFATE1 GM PO (02:36)
[2020-07-07] MEDS ORDERED: FLOMAX0.4 MG PO (02:36)
[2020-07-07] MEDS: INSULIN REGULAR, HUMAN 100 UNIT/1 ML 3ML VIAL SQ SCH ×4 (07:30→21:00)
[2020-07-07 07:44] LABS: CLARITY,URINE SL CLOUDY (CLEAR); COLOR,URINE YELLOW (YELLOW)
[2020-07-07 07:45] LABS: LEUKOCYTE ESTERASE ,URINE NEGATIVE (NEGATIVE); NITRITE,URINE NEGATIVE (NEGATIVE)
[2020-07-07 07:46] LABS: BACTERIA,URINE RARE /HPF; BILIRUBIN,URINE NEGATIVE (NEGATIVE); EPITHELIAL CELLS,URINE FEW /LPF; KETONES,URINE NEGATIVE (NEGATIVE); PROTEIN,URINE DIPSTICK 1+ (NEGATIVE); RBC,URINE 0-5 /HPF (0-5); URINE UROBILINOGEN 0.2 mg/dL (0.2 - 1); WBC,URINE (MAN) 0-5 /HPF (0-5)
[2020-07-07 08:15] LABS: CREATINE KINASE MB 0.6 ng/mL (0-5.0)
[2020-07-07] MEDS ORDERED: HYDROXYZINE HCL 25 MG PO PRN (09:45)
[2020-07-07] MEDS ORDERED: HYDROXYZINE HCL 50 MG PO PRN (09:45)
[2020-07-07] MEDS ORDERED: NON-FORMULARY MEDICATION (Ondansetron Hcl (Zofran) 4 MG) PO PRN (09:45)
[2020-07-07] MEDS: HYDROCODONE/APAP 5MG-325MG TAB PO PRN ×2 (10:00→15:07)
[2020-07-07] MEDS ORDERED: ONDANSETRON HCL 4 MG ORAL DISINTEGRATING TAB PO PRN (10:15)
[2020-07-07] MEDS ORDERED: HYDROXYZINE HCL 25 MG TAB PO PRN ×2 (10:15→21:00)
[2020-07-07] MEDS: MORPHINE SULFATE 2 MG/ML SYR 1ML IV PRN ×3 (10:30→22:40)
[2020-07-07] MEDS ORDERED: METHOCARBAMOL 750 MG TAB PO SCH (13:00)
[2020-07-07] MEDS: METHOCARBAMOL 500 MG TAB PO SCH ×3 (15:29→21:34)
[2020-07-07] MEDS: SUCRALFATE 1 GM TAB PO SCH (15:29)
[2020-07-07] MEDS: BUSPIRONE HCL 10 MG TABLET PO SCH (15:30)
[2020-07-07] MEDS: TAMSULOSIN HCL 0.4 MG CAP PO SCH (15:30)
[2020-07-07] MEDS: ISOSORBIDE MONONITRATE 20 MG TAB PO SCH (15:30)
[2020-07-07] MEDS: METFORMIN HCL 500 MG TAB CR PO SCH (15:30)
[2020-07-07 16:18] LABS: CREATINE KINASE MB 0.6 ng/mL (0-5.0)
[2020-07-07] MEDS ORDERED: BUSPIRONE HCL 5 MG TAB PO SCH (17:00)
[2020-07-07] MEDS ORDERED: ATORVASTATIN 20 MG TAB PO SCH (21:00)
[2020-07-07] MEDS ORDERED: ATORVASTATIN 40 MG TAB PO SCH (21:00)
[2020-07-07] MEDS ORDERED: SODIUM CHLORIDE 0.9% 250ML 250 ML ONE (21:25)
[2020-07-07] MEDS: CEFTRIAXONE SOD 1 GRAM/0.9% SOD CHL 50ML BAG IV SCH (21:34)
[2020-07-07] MEDS: AZITHROMYCIN 500MG/SOD CHL 0.9% 250ML BAG IV SCH (23:00)
[2020-07-08] VITALS (7 sets, daily range): BP systolic 110–150; BP diastolic 73–99
[2020-07-08] MEDS: MORPHINE SULFATE 2 MG/ML SYR 1ML IV PRN ×4 (03:56→20:02)
[2020-07-08] MEDS: PANTOPRAZOLE 40 MG 10ML VIAL IV SCH ×2 (05:26→17:35)
[2020-07-08] MEDS: INSULIN REGULAR, HUMAN 100 UNIT/1 ML 3ML VIAL SQ SCH ×4 (07:30→21:00)
[2020-07-08] MEDS: TAMSULOSIN HCL 0.4 MG CAP PO SCH ×2 (08:56→17:35)
[2020-07-08] MEDS: BUSPIRONE HCL 10 MG TABLET PO SCH ×2 (08:56→17:35)
[2020-07-08] MEDS: SUCRALFATE 1 GM TAB PO SCH ×2 (08:56→17:35)
[2020-07-08] MEDS: ASPIRIN 81 MG CHEW TAB PO SCH (08:56)
[2020-07-08] MEDS: METFORMIN HCL 500 MG TAB CR PO SCH ×2 (08:56→17:35)
[2020-07-08] MEDS: GLIPIZIDE 5 MG TAB ER PO SCH (08:56)
[2020-07-08] MEDS: ISOSORBIDE MONONITRATE 20 MG TAB PO SCH ×2 (08:57→17:36)
[2020-07-08] MEDS: AMLODIPINE BESYLATE 5 MG TAB PO SCH (08:57)
[2020-07-08] MEDS: METHOCARBAMOL 500 MG TAB PO SCH ×4 (08:57→20:02)
[2020-07-08] MEDS: CLOPIDOGREL BISULFATE 75 MG TAB PO SCH (08:57)
[2020-07-08] MEDS: FUROSEMIDE 40 MG TAB PO SCH (08:57)
[2020-07-08] MEDS: METOPROLOL SUCCINATE 50 MG TAB XL PO SCH (08:58)
[2020-07-08] MEDS: EZETIMIBE 10 MG TAB PO SCH (08:58)
[2020-07-08] MEDS ORDERED: NON-FORMULARY MEDICATION (Glipizide 20 MG) PO SCH (09:00)
[2020-07-08] MEDS ORDERED: AMLODIPINE BESYLATE 10 MG TAB PO SCH (09:00)
[2020-07-08] MEDS ORDERED: PANTOPRAZOLE SOD 40 MG TABEC PO SCH (09:00)
[2020-07-08] MEDS: CEFTRIAXONE SOD 1 GRAM/0.9% SOD CHL 50ML BAG IV SCH (20:02)
[2020-07-08] MEDS: AZITHROMYCIN 500MG/SOD CHL 0.9% 250ML BAG IV SCH (22:55)
[2020-07-09] MEDS: MORPHINE SULFATE 2 MG/ML SYR 1ML IV PRN ×3 (00:15→11:12)
[2020-07-09 00:47] VITALS: BP 130/93
[2020-07-09] MEDS: PANTOPRAZOLE 40 MG 10ML VIAL IV SCH (04:23)
[2020-07-09 05:19] VITALS: BP 122/75
[2020-07-09 06:34] LABS: BASOPHILS # (AUTO) 0.1 (0.0-0.1); BASOPHILS % 0.6 % (0.0-1.0); EOSINOPHILS # (AUTO) 0.3 (0.0-0.4); HEMOGLOBIN 16.2 g/dL (14.0-18.0); LYMPHOCYTES # (AUTO) 2.9 (1.0-3.2); LYMPHOCYTES % 25.3 % (18.0-39.1); MEAN CORPUSCULAR HEMOGLOBIN 30.3 pg (28-32); MEAN CORPUSCULAR HGB CONC 31.8 g/dL (31-35); MEAN CORPUSCULAR VOLUME 95.5 fL (81-99); MONOCYTES # (AUTO) 0.8 (0.2-0.8); MONOCYTES % 7.3 % (4.4-11.3); NEUTROPHILS # (AUTO) 7.2 (2.1-6.9); NEUTROPHILS % 63.4 % (38.7-80.0); PLATELET COUNT 235 x10e3/uL (140-360); RED BLOOD COUNT 5.34 x10e6/uL (4.3-5.7); RED CELL DISTRIBUTION WIDTH 12.9 % (11.7-14.4)
[2020-07-09] MEDS: GLIPIZIDE 5 MG TAB ER PO SCH (07:30)
[2020-07-09] MEDS: INSULIN REGULAR, HUMAN 100 UNIT/1 ML 3ML VIAL SQ SCH ×2 (07:30→11:30)
[2020-07-09] MEDS: SUCRALFATE 1 GM TAB PO SCH (07:30)
[2020-07-09] MEDS: METFORMIN HCL 500 MG TAB CR PO SCH (08:00)
[2020-07-09 08:30] VITALS: BP 130/97
[2020-07-09] MEDS: BUSPIRONE HCL 10 MG TABLET PO SCH (09:00)
[2020-07-09] MEDS: TAMSULOSIN HCL 0.4 MG CAP PO SCH (09:00)
[2020-07-09] MEDS: ISOSORBIDE MONONITRATE 20 MG TAB PO SCH (09:00)
[2020-07-09] MEDS: CLOPIDOGREL BISULFATE 75 MG TAB PO SCH (11:12)
[2020-07-09] MEDS: EZETIMIBE 10 MG TAB PO SCH (11:12)
[2020-07-09] MEDS: AMLODIPINE BESYLATE 5 MG TAB PO SCH (11:12)
[2020-07-09] MEDS: FUROSEMIDE 40 MG TAB PO SCH (11:12)
[2020-07-09] MEDS: METHOCARBAMOL 500 MG TAB PO SCH ×2 (11:12→14:00)
[2020-07-09] MEDS: ASPIRIN 81 MG CHEW TAB PO SCH (11:12)
[2020-07-09] MEDS: METOPROLOL SUCCINATE 50 MG TAB XL PO SCH (11:12)
[2020-07-09] MEDS ORDERED: LIDOCAINE HCL 2% LOCAL INJ 5 ML SDV VIAL INJ ONE (11:49)
[2020-07-09] MEDS ORDERED: PROPOFOL IV EMULSION 10 MG/ML 20 ML VIAL ONE (11:49)
[2020-07-09 11:58] VITALS: BP 128/95
[2020-07-09] MEDS ORDERED: KETAMINE HCL INJ 50 MG/ML 10 ML VIAL ONE (13:16)
[2020-07-09] MEDS ORDERED: MIDAZOLAM HCL 2 MG/2 ML VIAL ONE (13:16)
== END 2020-07-09 15:03 | disposition home or self-care (01) | DRG 871 ==
LOC: ER 20:35 → ERHOLD 23:03 → MED/SURG2 07-07 00:52
PROVIDERS: ADMIT Internal Medicine; ATTEND Internal Medicine
PROC: 0DB78ZX Excision of Stomach, Pylorus, Via Natural or Artificial Opening Endoscopic, Diagnostic (ICD-10-PCS; 2020-07-09)
PROC: 0DB68ZX Excision of Stomach, Via Natural or Artificial Opening Endoscopic, Diagnostic (ICD-10-PCS; 2020-07-09)
PROC: 0DB48ZX Excision of Esophagogastric Junction, Via Natural or Artificial Opening Endoscopic, Diagnostic (ICD-10-PCS; principal; 2020-07-09 09:11)
DX: A41.9 Sepsis, unspecified organism (principal); J15.9 Unspecified bacterial pneumonia; I50.32 Chronic diastolic (congestive) heart failure; I25.10 Atherosclerotic heart disease of native coronary artery without angina pectoris; Z95.1 Presence of aortocoronary bypass graft; E66.9 Obesity, unspecified; Z68.38 Body mass index [BMI] 38.0-38.9, adult; K29.70 Gastritis, unspecified, without bleeding; E11.65 Type 2 diabetes mellitus with hyperglycemia; Z95.0 Presence of cardiac pacemaker; K20.9 Esophagitis, unspecified; Z86.010 Personal history of colon polyps; I11.0 Hypertensive heart disease with heart failure; Z11.59 Encounter for screening for other viral diseases
CPT/HCPCS: 36415; 43239; 71045; 71260; 80053; 81001; 82550; 82553; 82948; 83605; 83880; 84484; 85025; 85379; 87040; 88104; 88112; 88305; 88312; 93005; 93306; 99284; J0456; J0696; J2001; J2060; J2250; J2270; J2405; J7030; J7040; J7050; Q9967; U0002